=== PATIENT | female | born 1975 | race Caucasian/White ===

== ENCOUNTER 2018-08-03 18:16 | Emergency (ER) | payer OTHER ==
--- NOTE | 2018-08-03 18:35 | ERPHSYRPT ---
- History of Present Illness Time Seen by Provider: 08/03/18 18:34 Historian: patient Exam Limitations: no limitations Physician History: 43 y/o morbidly obese white female presents with abd pain and vaginal bleeding intermittently for 2 weeks. she had a normal pap smear 2 months ago. pt seen 2 weeks ago by her WHEEL BLOCKER, and vaginal exam performed at that time. pt was started on provera. this did not help. today bleeding became more brisk. since arrival bleeding has slowed down significantly. pt has had similar episode in the past requiring blood transfusions. pt denies soa, headache, weakness and denies dizziness. pt denies liver dz, not taking anticoag tx, not taking asa or ibuprofen. pt does not consume etoh. she denies bleeding or clotting d/o. Timing/Duration: week(s) (2), intermittent Activities at Onset: none Quality: cramping (mild suprapubic) Abdominal Pain Onset Location: suprapubic Pain Radiation: no radiation Severity of Pain-Max: mild Severity of Pain-Current: mild Modifying Factors: Improves With: lying down (improves) Associated Symptoms: No fatigue, No nausea, No shortness of breath, No vomiting , No weakness Allergies/Adverse Reactions: aspirin Allergy (Mild, Verified 08/03/18 18:45) ibuprofen Allergy (Verified 08/03/18 18:45) ketorolac tromethamine [From Toradol] Allergy (Verified 08/03/18 18:45) Difficulty Breathing naproxen Allergy (Verified 08/03/18 18:45) Home Medications: Allopurinol 300 mg PO DAILY 12/01/15 [History] Oxycodone HCl 30 mg PO TID PRN 12/01/15 [History] Propranolol HCl [Propranolol HCl ER] 60 mg PO DAILY 12/01/15 [History] Glipizide [Glucotrol Xl] 10 mg DAILY 02/27/18 [History] Hydroxyzine HCl 25 mg [Atarax 25 mg] 25 mg PO TID 02/27/18 [History] Insulin Glargine,Hum.rec.anlog [Basaglar Kwikpen U-100] 20 unit SQ DAILY [History] Venlafaxine HCl [Venlafaxine HCl ER] 150 mg PO DAILY 04/05/18 [History] Hx Tetanus, Diphtheria Vaccination/Date Given: No Hx Influenza Vaccination/Date Given: No Hx Pneumococcal Vaccination/Date Given: No - Review of Systems Constitutional: No Symptoms, No Fatigue, No Lethargy, No Weakness Eyes: No Symptoms Ears, Nose, & Throat: No Symptoms, No Nose Congestion, No Mouth Pain Respiratory: No Symptoms, No Cough, No Dyspnea, No Stridor, No Wheezing Cardiac: No Symptoms, No Chest Pain, No Palpitations, No Syncope Abdominal/Gastrointestinal: No Symptoms, No Abdominal Pain, No Nausea, No Vomiting, No Diarrhea Genitourinary Symptoms: No Symptoms, No Dysuria, No Frequency, No Hematuria Musculoskeletal: No Symptoms Skin: No Symptoms Neurological: No Symptoms Psychological: No Symptoms Endocrine: No Symptoms Hematologic/Lymphatic: Blood Clots (vaginally earlier today) Immunological/Allergic: No Symptoms All Other Systems: Reviewed and Negative - Past Medical History Pertinent Past Medical History: Yes Neurological History: No Pertinent History ENT History: No Pertinent History Cardiac History: No Pertinent History Respiratory History: Bronchitis Endocrine Medical History: Diabetes Type II Musculoskeletal History: Degenerative Disk Disease GI Medical History: No Pertinent History, Ulcer History: No Pertinent History Psycho-Social History: Anxiety, Depression Female Reproductive Disorders: Menstrual Problems Other Medical History: Pt states she has Celiac disease and does not tolerate gluten.gout,anemia,high wbc-blood diorder - Past Surgical History Past Surgical History: Yes Neuro Surgical History: No Pertinent History Cardiac: No Pertinent History Respiratory: No Pertinent History Gastrointestinal: Cholecystectomy Genitourinary: No Pertinent History Musculoskeletal: No Pertinent History Female Surgical History: No Pertinent History Other Surgical History: Gall baldder 1998 - Social History Smoking Status: Never smoker Exposure to second hand smoke: Yes (aunt) Drug Use: none Patient Lives Alone: No - Nursing Vital Signs Nursing Vital Signs: Initial Vital Signs Temperature 97.4 F 08/03/18 18:38 Pulse Rate 119 H 08/03/18 18:38 Respiratory Rate 20 08/03/18 18:38 Blood Pressure 168/113 08/03/18 18:38 O2 Sat by Pulse Oximetry 95 08/03/18 18:38 Pain Scale Pain Intensity 0 - Physical Exam General Appearance: no apparent distress, alert, anxiety Eye Exam: PERRL/EOMI Ears, Nose, Throat Exam: normal ENT inspection, moist mucous membranes Neck Exam: normal inspection, non-tender, supple, full range of motion Respiratory Exam: normal breath sounds, lungs clear, airway intact, No chest tenderness, No respiratory distress, No accessory muscle use, No rhonchi, No wheezing, No stridor Cardiovascular Exam: tachycardia Gastrointestinal/Abdomen Exam: soft, normal bowel sounds, tenderness (mild suprapubic) Pelvic Exam: not done, vaginal bleeding (not at time of exam) Rectal Exam: not done Back Exam: normal inspection, normal range of motion, No CVA tenderness, No vertebral tenderness Extremity Exam: normal inspection, normal range of motion, pelvis stable Neurologic Exam: alert, oriented x 3, cooperative, edge bonder II-XII nml as tested Skin Exam: normal color, warm, dry Lymphatic Exam: No adenopathy SpO2 Interpretation: normal - Course Nursing assessment & vital signs reviewed: Yes Ordered Tests: Active Orders 24 hr Category Date Time Status IV Insertion STAT Care 08/03/18 18:58 Active CBC W DIFF Stat Lab 08/03/18 19:38 Completed CMP Stat Lab 08/03/18 19:38 Completed HCG QUALITATIVE,SERUM Stat Lab 08/03/18 19:38 Completed PT INR [PROTIME WITH INR] Stat Lab 08/03/18 19:38 Completed UA W/RFX UR CULTURE Stat Lab 08/03/18 18:59 Uncollected Medication Summary Generic Name Dose Route Start Last Admin Trade Name Freq PRN Reason Stop Dose Admin Sodium Chloride 500 mls @ 500 mls/hr 08/03/18 20:19 Sodium Chloride 0.9% 500 Ml IV 08/03/18 21:18 .Q1H ONE Lab/Rad Data: Laboratory Result Diagrams 08/03/18 19:38 08/03/18 19:38 Laboratory Results 08/03/18 08/03/18 08/03/18 Range/Units 19:38 19:38 19:38 WBC (4.0-10.5) K/mm3 RBC (4.1-5.4) M/mm3 Hgb (12.0-16.0) gm/dl Hct (35-47) % MCV (78-100) fl MCH (26-32) pg MCHC (32-36) g/dl RDW (11.5-14.0) % Plt Count (150-450) K/mm3 MPV (6-9.5) fl Gran % (36.0-66.0) % Eos # (Auto) (0-0.5) Absolute Lymphs (auto) (1.0-4.6) Absolute Monos (auto) (0.0-1.3) Lymphocytes % (24.0-44.0) % Monocytes % (0.0-12.0) % Eosinophils % (0.00-5.0) % Basophils % (0.0-0.4) % Absolute Granulocytes (1.4-6.9) Basophils # (0-0.4) PT 13.9 H (9.95-12.35) SECONDS INR 1.19 (0.8-3.0) Sodium 142 (137-145) mmol/L Potassium 3.7 (3.5-5.1) mmol/L Chloride 101 (98-107) mmol/L Carbon Dioxide 24 (22-30) mmol/L Anion Gap 20.0 H (5-15) MEQ/L BUN 16 (7-17) mg/dL Creatinine 0.85 (0.52-1.04) mg/dL Estimated GFR > 60.0 ML/MIN Glucose 198 H (74-106) mg/dL Calcium 9.3 (8.4-10.2) mg/dL Total Bilirubin 0.40 (0.2-1.3) mg/dL AST 20 (14-36) U/L ALT 21 (0-35) U/L Alkaline Phosphatase 135 H (38-126) U/L Serum Total Protein 8.4 H (6.3-8.2) g/dL Albumin 4.4 (3.5-5.0) g/dL Serum , Qual NEGATIVE (Negative) 08/03/18 Range/Units 19:38 WBC 18.4 H (4.0-10.5) K/mm3 RBC 4.31 (4.1-5.4) M/mm3 Hgb 11.5 L (12.0-16.0) gm/dl Hct 36.0 (35-47) % MCV 83.5 (78-100) fl MCH 26.6 (26-32) pg MCHC 31.9 L (32-36) g/dl RDW 14.9 H (11.5-14.0) % Plt Count 426 (150-450) K/mm3 MPV 9.7 H (6-9.5) fl Gran % 75.3 H (36.0-66.0) % Eos # (Auto) 0.45 (0-0.5) Absolute Lymphs (auto) 3.17 (1.0-4.6) Absolute Monos (auto) 0.86 (0.0-1.3) Lymphocytes % 17.2 L (24.0-44.0) % Monocytes % 4.7 (0.0-12.0) % Eosinophils % 2.4 (0.00-5.0) % Basophils % 0.4 (0.0-0.4) % Absolute Granulocytes 13.83 H (1.4-6.9) Basophils # 0.07 (0-0.4) PT (9.95-12.35) SECONDS INR (0.8-3.0) Sodium (137-145) mmol/L Potassium (3.5-5.1) mmol/L Chloride (98-107) mmol/L Carbon Dioxide (22-30) mmol/L Anion Gap (5-15) MEQ/L BUN (7-17) mg/dL Creatinine (0.52-1.04) mg/dL Estimated GFR ML/MIN Glucose (74-106) mg/dL Calcium (8.4-10.2) mg/dL Total Bilirubin (0.2-1.3) mg/dL AST (14-36) U/L ALT (0-35) U/L Alkaline Phosphatase (38-126) U/L Serum Total Protein (6.3-8.2) g/dL Albumin (3.5-5.0) g/dL Serum , Qual (Negative) - Progress Progress: improved, re-examined Counseled pt/family regarding: lab results, diagnosis, need for follow-up - Departure Time of Disposition: 20:32 Departure Disposition: Home Clinical Impression: Vaginal bleeding Condition: Stable Critical Care Time: No Referrals: LUCERO RIVERS [Primary Care Provider] - Additional Instructions: return to [facility] tomorrow morning for lab recheck. go to Emergency room after blood draw to obtain results. return to Emergency room if bleeding worsens and you have dizziness, weakness or worsening abdominal cramping. bedrest and drink plenty of fluids.
[2018-08-03 19:43] LABS: BASOPHIL % 0.4 % (0.0-0.4); Basophil (Absolute #) 0.07 (0-0.4); Eosinophil % 2.4 % (0.00-5.0); Eosinophil (Absolute #) 0.45 (0-0.5); Granulocyte Absolute (ANC) 13.83 (1.4-6.9); Granulocytes % 75.3 % (36.0-66.0); Hemoglobin 11.5 gm/dl (12.0-16.0); Lymphocyte (Absolute #) 3.17 (1.0-4.6); Lymphocytes % 17.2 % (24.0-44.0); Mean Cell Volume 83.5 fl (78-100); Mean Corpuscular Hgb Concent. 31.9 g/dl (32-36); Mean Platelet Volume 9.7 fl (6-9.5); Monocyte (Absolute #) 0.86 (0.0-1.3); Monocytes % 4.7 % (0.0-12.0); Platelet Count 426 K/mm3 (150-450); Red Blood Count 4.31 M/mm3 (4.1-5.4); Red Cell Distribution Width 14.9 % (11.5-14.0); White Blood Count 18.4 K/mm3 (4.0-10.5)
[2018-08-03 19:44] LABS: Mean Corpuscular Hemoglobin 26.6 pg (26-32)
[2018-08-03 19:58] LABS: INR 1.19 (0.8-3.0)
[2018-08-03] MEDS ORDERED: Sodium Chloride 0.9% 500 ML 500 ML IV ONE (20:19)
[2018-08-03 20:27] LABS: ALBUMIN 4.4 g/dL (3.5-5.0); ALKALINE PHOSPHATASE 135 U/L (38-126); BLOOD UREA NITROGEN 16 mg/dL (7-17); CHLORIDE 101 mmol/L (98-107); Calcium 9.3 mg/dL (8.4-10.2); Carbon Dioxide 24 mmol/L (22-30); Creatinine 1 0.85 mg/dL (0.52-1.04); Glucose 198 mg/dL (74-106); Potassium 3.7 mmol/L (3.5-5.1); SGOT/AST 20 U/L (14-36); SGPT/ALT 21 U/L (0-35); SODIUM 142 mmol/L (137-145); Total Protein 8.4 g/dL (6.3-8.2)
[2018-08-03] MEDS ORDERED: Sodium Chloride 0.9% 1000 ML 1,000 ML ONE (20:28)
[2018-08-03] MEDS ORDERED: Zofran 4 MG/2 ML VIAL ONE (20:32)
[2018-08-03] MEDS ORDERED: Zofran 4 MG/2 ML VIAL IV ONE (20:36)
[2018-08-03 21:23] VITALS: BP 110/52; PULSE 95; O2SAT 95
== END 2018-08-03 21:17 | disposition home or self-care (01) ==
LOC: ED 18:16
DX: N93.9 Abnormal uterine and vaginal bleeding, unspecified (principal); Z79.899 Other long term (current) drug therapy; E11.9 Type 2 diabetes mellitus without complications; Z79.4 Long term (current) use of insulin; R10.9 Unspecified abdominal pain
CPT/HCPCS: 36000; 36415; 80053; 81025; 85025; 85610; 96360; 96374; 99284; J2405

== ENCOUNTER 2019-01-24 19:35 | Emergency (ER) | payer OTHER ==
[2019-01-24] MEDS ORDERED: Zofran 4 MG/2 ML VIAL IV ONE (20:13)
[2019-01-24] MEDS ORDERED: Hydromorphone 1 mg/ml Ampule IV ONE (20:13)
[2019-01-24] MEDS ORDERED: solu-MEDROL 125 MG IV ONE (20:14)
[2019-01-24] MEDS ORDERED: Sodium Chloride 0.9% 1000 ML 1,000 ML IV SCH (20:15)
--- NOTE | 2019-01-24 20:19 | ERPHSYRPT ---
- History of Present Illness Time Seen by Provider: 01/24/19 19:55 Source: patient Exam Limitations: clinical condition Patient Subjective Stated Complaint: pain to lower right back area. Hx of uterine cancer, pt states, Delfina Miller NP, states theres a spot on her lung and her kidney and pt is afraid it has spread. Pt states sob x1 week and back pain 2-3 weeks. Triage Nursing Assessment: lungs clear, abd soft with active bs x4 quad. heart tones regular. Pt is morbidly obese. Does not appear to be in any distress. C /o back pain, no radiating pain. Pt has hx of uterine cancer, with hysterectomy on 10/26/18. Delfina Miller NP, tells pt that she has a spot on her lung and kidney and she's afraid it might of spread. Physician History: PATIENT WITH A HISTORY OF MORBID OBESITY, DEGENERATIVE DISC DISEASE COMPLAINS OF LOWER BACK PAIN FOR WEEKS. DENIES TRAUMA, INJURY, RADIATION OF PAIN INTO LEGS , NUMBNESS, WEAKNESS IN EXTREMITIES, LOSS OF BOWEL OR BLADDER FUNCTION. STATES PAIN IS WORSE UPON RANGE OF MOTION OF BACK. Timing/Duration: week(s) Method of Injury: other (DENIES INJURY) Quality: sharp, throbbing Back Pain Location: lumbar spine Severity of Pain-Max: severe Severity of Pain-Current: severe Modifying Factors: Improves With: movement Associated Symptoms: lower back pain Previous symptoms: same symptoms as today Allergies/Adverse Reactions: aspirin Allergy (Mild, Verified 08/03/18 18:45) ibuprofen Allergy (Verified 08/03/18 18:45) ketorolac tromethamine [From Toradol] Allergy (Verified 08/03/18 18:45) Difficulty Breathing naproxen Allergy (Verified 08/03/18 18:45) Home Medications: Allopurinol 300 mg PO DAILY 12/01/15 [History] Propranolol HCl [Propranolol HCl ER] 60 mg PO DAILY 12/01/15 [History] Hydroxyzine HCl 25 mg [Atarax 25 mg] 25 mg PO TID 02/27/18 [History] Colchicine 0.6 mg PO HS 01/24/19 [History] Insulin Glargine,Hum.rec.anlog [Basaglar Kwikpen U-100] 10 units SQ HS 01/24/19 [History] Insulin Glargine,Hum.rec.anlog [Sabiha Jaime U-100] 50 unit SQ DAILY [History] Lisinopril 20 mg [Zestril 20 MG] 20 mg PO DAILY 01/24/19 [History] Omeprazole 20 mg PO HS 01/24/19 [History] Oxybutynin Chloride 5 mg PO HS 01/24/19 [History] Sertraline HCl 50 mg [Zoloft 50 mg Tablet] 50 mg PO HS 01/24/19 [History] Hx Tetanus, Diphtheria Vaccination/Date Given: Yes Hx Influenza Vaccination/Date Given: Yes Hx Pneumococcal Vaccination/Date Given: No Immunizations Up to Date: Yes - Review of Systems Constitutional: No Fever, No Chills Eyes: No Symptoms Ears, Nose, & Throat: No Symptoms Respiratory: No Cough, No Dyspnea Cardiac: No Symptoms, No Chest Pain, No Edema, No Syncope Abdominal/Gastrointestinal: No Abdominal Pain, No Nausea, No Vomiting, No Diarrhea Genitourinary Symptoms: No Symptoms, No Dysuria Musculoskeletal: Joint Pain, No Back Pain, No Neck Pain Skin: No Rash Neurological: No Dizziness, No Focal Weakness, No Sensory Changes Psychological: No Symptoms Endocrine: No Symptoms All Other Systems: Reviewed and Negative - Past Medical History Pertinent Past Medical History: Yes Neurological History: Migraines ENT History: Macular Degeneration Cardiac History: High Cholesterol, Hypertension Respiratory History: No Pertinent History Endocrine Medical History: Diabetes Type II Musculoskeletal History: No Pertinent History GI Medical History: GERD, Gallbladder Disease History: No Pertinent History Psycho-Social History: Anxiety, Bipolar, Depression Female Reproductive Disorders: Abnormal Uterine Bleeding, Uterine Cancer Other Medical History: gout - Past Surgical History Past Surgical History: Yes Neuro Surgical History: No Pertinent History Cardiac: No Pertinent History Respiratory: No Pertinent History Gastrointestinal: Cholecystectomy Genitourinary: No Pertinent History Musculoskeletal: No Pertinent History Female Surgical History: Hysterectomy Other Surgical History: Gall baldder 1998 - Social History Smoking Status: Never smoker Exposure to second hand smoke: Yes Drug Use: none Patient Lives Alone: No - Female History Hx Last Menstrual Period: october, Hx Now: No - Nursing Vital Signs Nursing Vital Signs: Initial Vital Signs Temperature 98.9 F 01/24/19 19:35 Pulse Rate 106 H 01/24/19 19:35 Respiratory Rate 18 01/24/19 19:35 Blood Pressure 170/105 01/24/19 19:35 O2 Sat by Pulse Oximetry 95 01/24/19 19:35 Pain Scale Pain Intensity [Right Back] 10 Pain Intensity 10 - Physical Exam General Appearance: no apparent distress, alert Eye Exam: PERRL/EOMI, eyes nml inspection Neck Exam: normal inspection, non-tender, supple, full range of motion, No meningismus, No midline tenderness Respiratory Exam: normal breath sounds, lungs clear, No respiratory distress Cardiovascular Exam: regular rate/rhythm, normal heart sounds Gastrointestinal Exam: soft, No tenderness, No mass Back Exam: normal inspection, vertebral tenderness, decreased range of motion, muscle spasm (MARKED TENDERNESS LI-L5 WITH PARASPINAL TENDERNESS, NO CVA OR SACROILIAC TENDERNESS) Extremity Exam: normal inspection, normal range of motion, No calf tenderness, No pedal edema Neurologic Exam: alert, oriented x 3, cooperative, visual journalist II-XII nml as tested, normal mood/affect, nml station & gait, sensation nml, No motor deficits Skin Exam: normal color, warm, dry, No rash SpO2: 95 - Radiology Exams L-Spine X-ray Interpretation: Interpreted by me (MILD DEGENERATIVE ARTHRITIS, NO FRACTURE OR SUBLUXATION) Ordered Tests: Active Orders 24 hr Category Date Time Status LUMBAR COMPLETE (MIN 4 VIEWS) Stat Exams 01/24/19 20:12 Taken UA W/RFX UR CULTURE Stat Lab 01/24/19 20:19 Ordered Medication Summary Generic Name Dose Route Start Last Admin Trade Name Freq PRN Reason Stop Dose Admin Sodium Chloride 1,000 mls @ 50 mls/hr 01/24/19 20:15 01/24/19 20:27 Sodium Chloride 0.9% 1000 Ml IV 02/23/19 20:14 50 mls/hr .Q20H GODWIN Administration Discontinued Medications Generic Name Dose Route Start Last Admin Trade Name Freq PRN Reason Stop Dose Admin Hydromorphone HCl 1 mg 01/24/19 20:13 01/24/19 20:27 Hydromorphone 1 Mg/Ml Ampule IV 01/24/19 20:14 1 mg STAT ONE Administration Hydromorphone HCl Confirm 01/24/19 20:22 Hydromorphone 1 Mg/Ml Ampule Administered 01/24/19 20:23 Dose 1 mg .ROUTE .STK-MED ONE Methylprednisolone Sodium Succinate 125 mg 01/24/19 20:14 01/24/19 20:28 Solu-Medrol 125 Mg IV 01/24/19 20:15 125 mg STAT ONE Administration Methylprednisolone Sodium Succinate Confirm 01/24/19 20:22 Solu-Medrol 125 Mg Administered 01/24/19 20:23 Dose 125 mg .ROUTE .STK-MED ONE Ondansetron HCl 4 mg 01/24/19 20:13 01/24/19 20:28 Zofran 4 Mg/2 Ml Vial IV 01/24/19 20:14 4 mg STAT ONE Administration Ondansetron HCl Confirm 01/24/19 20:22 Zofran 4 Mg/2 Ml Vial Administered 01/24/19 20:23 Dose 4 mg .ROUTE .STK-MED ONE - Progress Progress: improved Progress Note: 01/24/19 20:57 IV NORMAL SALINE 50ML/HR, ZOFRAN 4MG, DILAUDID 1MG, SOLUMEDROL 125MG IV Counseled pt/family regarding: lab results, diagnosis - Departure Departure Disposition: Home Clinical Impression: ACUTE EXACERBATION CHRONIC LOW BACK PAIN Condition: Stable Critical Care Time: No Referrals: LUCERO RIVERS [Primary Care Provider] - Additional Instructions: CONSULT YOUR PRIMARY CARE PROVIDER IN 3 DAYS FOR EVALUATION, TREATMENT, PHYSICAL THERAPY REFERRAL. PERCOGESIC 1 TABLET EVERY 4 HOURS FOR PAIN NEEDED , AND NORFLEX 100MG TWICE DAILY FOR 5 DAYS FOR TREATMENT OF MUSCLE SPASMS. PREDNISONE 20MG, 2 TABLETS DAILY FOR 4 DAYS. Prescriptions: Acetaminophen/Diphenhydramine [Percogesic 325-12.5 mg Tablet] 1 each PO Q4H PRN PRN #20 tablet PRN Reason: Pain Orphenadrine Citrate 100 mg [Norflex 100 MG Tablet] 100 mg PO BID #10 tab Prednisone 20 mg [Deltasone 20 mg] 2 tab PO DAILY #8 tablet
[2019-01-24] MEDS ORDERED: Zofran 4 MG/2 ML VIAL ONE (20:22)
[2019-01-24] MEDS ORDERED: Hydromorphone 1 mg/ml Ampule ONE (20:22)
[2019-01-24] MEDS ORDERED: solu-MEDROL 125 MG ONE (20:22)
[2019-01-24] MEDS ORDERED: Sodium Chloride 0.9% 1000 ML 1,000 ML ONE (20:22)
[2019-01-24 21:13] VITALS: BP 123/67; PULSE 94; O2SAT 94
--- NOTE | 2019-01-25 08:41 | XRAY ---
Indication: Low back pain 2 weeks. Comparison: February 13, 2017. 5 views of the lumbar spine again demonstrates normal alignment with stable mild multilevel thoracolumbar degenerative spondylosis and cholecystectomy clips. No acute fracture, subluxation, or pars interarticularis defect. Remaining visualized soft tissues unremarkable. Impression: Stable degenerative changes. No new/acute findings.
== END 2019-01-24 21:21 | disposition home or self-care (01) ==
LOC: ED 19:35
DX: M54.5 Low back pain (principal); G89.29 Other chronic pain; M19.90 Unspecified osteoarthritis, unspecified site; E11.9 Type 2 diabetes mellitus without complications; F41.9 Anxiety disorder, unspecified; F31.9 Bipolar disorder, unspecified; Z79.899 Other long term (current) drug therapy
CPT/HCPCS: 72110; 96360; 96374; 96375; 99284; J1170; J2405; J2930

== ENCOUNTER 2019-02-01 18:39 | Emergency (ER) | payer OTHER ==
--- NOTE | 2019-02-01 19:47 | ERPHSYRPT ---
- History of Present Illness Time Seen by Provider: 02/01/19 19:10 Source: patient, family Patient Subjective Stated Complaint: Pt states she was here in the er last monday. Was not able to make it to a follow up appt with her doctor. Stated the pain never went away but has gotten worse since yesterday. No difficulty with urinating or bm Triage Nursing Assessment: Pt alert & oriented. Ambulated to room. Respirations easy and non-labored. Abdomen non-tender to palpation but left and right flank and dry cans back tender to palpation. Physician History: 43 y/o diabetic,morbidly obese white female returns with same complaint of back pain bilateral lower. no injury. pt was unable to see an outpt primary doctor since her last visit as instructed. she has no urinary sx. Timing/Duration: week(s) (1 to 2 ) Method of Injury: other (no injury) Quality: aching Back Pain Location: lumbar spine Severity of Pain-Max: moderate Severity of Pain-Current: moderate Modifying Factors: Improves With: movement Associated Symptoms: lower back pain, muscle spasms, No urinary incontinence, No nausea, No vomiting, No problems urinating, No numbness in legs/feet, No weakness, No tingling in legs/feet Previous symptoms: same symptoms as today Allergies/Adverse Reactions: aspirin Allergy (Mild, Verified 08/03/18 18:45) ibuprofen Allergy (Verified 08/03/18 18:45) ketorolac tromethamine [From Toradol] Allergy (Verified 08/03/18 18:45) Difficulty Breathing naproxen Allergy (Verified 08/03/18 18:45) Home Medications: Allopurinol 300 mg PO DAILY 12/01/15 [History] Propranolol HCl [Propranolol HCl ER] 60 mg PO DAILY 12/01/15 [History] Hydroxyzine HCl 25 mg [Atarax 25 mg] 25 mg PO TID 02/27/18 [History] Colchicine 0.6 mg PO HS 01/24/19 [History] Insulin Glargine,Hum.rec.anlog [Basaglar Kwikpen U-100] 10 units SQ HS 01/24/19 [History] Insulin Glargine,Hum.rec.anlog [Basaglar Kwikpen U-100] 50 unit SQ DAILY [History] Lisinopril 20 mg [Zestril 20 MG] 20 mg PO DAILY 01/24/19 [History] Omeprazole 20 mg PO HS 01/24/19 [History] Oxybutynin Chloride 5 mg PO HS 01/24/19 [History] Sertraline HCl 50 mg [Zoloft 50 mg Tablet] 50 mg PO HS 01/24/19 [History] Hx Tetanus, Diphtheria Vaccination/Date Given: Yes Hx Influenza Vaccination/Date Given: Yes Hx Pneumococcal Vaccination/Date Given: No - Review of Systems Constitutional: No Symptoms Eyes: No Symptoms Ears, Nose, & Throat: No Symptoms Respiratory: No Symptoms Cardiac: No Symptoms Abdominal/Gastrointestinal: No Symptoms Genitourinary Symptoms: No Symptoms Musculoskeletal: Back Pain Skin: No Symptoms Neurological: No Symptoms Psychological: No Symptoms Endocrine: No Symptoms Hematologic/Lymphatic: No Symptoms Immunological/Allergic: No Symptoms All Other Systems: Reviewed and Negative - Past Medical History Pertinent Past Medical History: Yes Neurological History: Migraines ENT History: Macular Degeneration Cardiac History: High Cholesterol, Hypertension Respiratory History: No Pertinent History Endocrine Medical History: Diabetes Type II Musculoskeletal History: No Pertinent History GI Medical History: GERD, Gallbladder Disease History: No Pertinent History Psycho-Social History: Anxiety, Bipolar, Depression Female Reproductive Disorders: Abnormal Uterine Bleeding, Uterine Cancer Other Medical History: gout, celiac disease, anemia - Past Surgical History Past Surgical History: Yes Neuro Surgical History: No Pertinent History Cardiac: No Pertinent History Respiratory: No Pertinent History Gastrointestinal: Cholecystectomy Genitourinary: No Pertinent History Musculoskeletal: No Pertinent History Female Surgical History: Hysterectomy Other Surgical History: Gall baldder 1998 - Social History Smoking Status: Never smoker Exposure to second hand smoke: Yes Drug Use: none Patient Lives Alone: No - Female History Hx Now: No - Nursing Vital Signs Nursing Vital Signs: Initial Vital Signs Temperature 97.7 F 02/01/19 18:56 Pulse Rate 117 H 02/01/19 18:56 Respiratory Rate 18 02/01/19 18:56 Blood Pressure 133/82 02/01/19 18:56 O2 Sat by Pulse Oximetry 96 02/01/19 18:56 Pain Scale Pain Intensity 10 - Physical Exam General Appearance: mild distress, alert, anxiety Eye Exam: PERRL/EOMI Ears, Nose, Throat Exam: normal ENT inspection, moist mucous membranes Neck Exam: normal inspection, non-tender, supple, full range of motion Respiratory Exam: No chest tenderness, No respiratory distress Gastrointestinal Exam: No tenderness Pelvic Exam: not done Rectal Exam: not done Back Exam: normal inspection, decreased range of motion, muscle spasm Extremity Exam: normal inspection, normal range of motion, pelvis stable Neurologic Exam: alert, oriented x 3, cooperative, tilt wall supervisor II-XII nml as tested Skin Exam: normal color, warm, dry Lymphatic Exam: No adenopathy SpO2 Interpretation: normal SpO2: 96 O2 Delivery: Room Air - Course Nursing assessment & vital signs reviewed: Yes - Progress Progress: unchanged Counseled pt/family regarding: diagnosis, need for follow-up - Departure Departure Disposition: Home Clinical Impression: Chronic back pain Condition: Stable Critical Care Time: No Referrals: LUCERO RIVERS [Primary Care Provider] - Additional Instructions: you must follow up with an outpatient provider for further management. Prescriptions: Carisoprodol 350 mg [Soma 350 mg] 350 mg PO Q8H PRN PRN #10 tablet PRN Reason: Muscle Spasms Hydrocodone/APAP 5/325 [[place] 5/325 mg] 1 each PO Q12H PRN PRN #5 tablet MDD 2 PRN Reason: Pain Prednisone 10 mg [Deltasone 10 mg] 10 mg PO TID #12 tablet
[2019-02-01] MEDS ORDERED: NORCO 5/325 MG PO ONE (19:54)
[2019-02-01] MEDS ORDERED: Cyclobenzaprine 10 MG PO ONE (19:55)
[2019-02-01] MEDS ORDERED: Cyclobenzaprine 10 MG ONE (19:58)
[2019-02-01] MEDS ORDERED: NORCO 5/325 MG ONE (19:59)
[2019-02-01 20:05] VITALS: BP 110/71
[2019-02-01 20:15] VITALS: PULSE 104; O2SAT 98
== END 2019-02-01 20:14 | disposition home or self-care (01) ==
LOC: ED 18:39
DX: M54.5 Low back pain (principal); G89.29 Other chronic pain; M62.830 Muscle spasm of back; Z79.899 Other long term (current) drug therapy
CPT/HCPCS: 99283; A9270-GY

== ENCOUNTER 2019-02-06 09:40 | Emergency (ER) | payer OTHER ==
--- NOTE | 2019-02-06 10:47 | XRAY ---
Indication: Right leg pain. Two-dimensional sonogram and color Doppler imaging of the major venous vessels of the right leg was performed. Comparison: None No thrombus seen in the examined deep venous vessels of the right leg including greater saphenous vein. Veins demonstrate normal compressibility. Venous waveforms are normal with and without augmentation. Impression: Right leg negative for DVT.
--- NOTE | 2019-02-06 11:27 | XRAY ---
Indication: Pain. No known injury. Comparison: None 3 views of the right ankle demonstrates tiny posterior heel spur. No other bony, articular, or soft tissue abnormalities.
--- NOTE | 2019-02-06 11:50 | ERPHSYRPT ---
- History of Present Illness Source: patient Exam Limitations: no limitations Patient Subjective Stated Complaint: pt states "my right foot hurts really bad. " Triage Nursing Assessment: Pt alert and oriented X 3, skin pwd. PT ambulates with a limp. Pt in no apparent respiratory distress. no injury, no swelling, no redness noted. Physician History: Pt is a 43 y/o female that presented to the ER with complains of R foot and leg pain. Pt states, she woke up this morning, and was not able to put her foot on the floor secondary to pain, she states, had spasms in her R calf as well. Pt' s daughter helped her to get to the ER and ambulate. Pt denies F/C/S. No SOB or cough. No chest discomfort. No N/V/D or abdominal pain. Occurred: this morning Quality: constant Severity of Pain-Max: mild Severity of Pain-Current: mild Lower Extremities Pain: leg: right (Pain in the calf), foot: right (pain in the foot and ankle.), ankle: right (pain in the foot and ankle.) Modifying Factors: Improves With: nothing Associated Symptoms: unable to bear weight Allergies/Adverse Reactions: aspirin Allergy (Mild, Verified 08/03/18 18:45) ibuprofen Allergy (Verified 08/03/18 18:45) ketorolac tromethamine [From Toradol] Allergy (Verified 08/03/18 18:45) Difficulty Breathing naproxen Allergy (Verified 08/03/18 18:45) Home Medications: Allopurinol 300 mg PO DAILY 12/01/15 [History] Propranolol HCl [Propranolol HCl ER] 60 mg PO DAILY 12/01/15 [History] Hydroxyzine HCl 25 mg [Atarax 25 mg] 25 mg PO TID 02/27/18 [History] Colchicine 0.6 mg PO HS 01/24/19 [History] Insulin Glargine,Hum.rec.anlog [Basaglar Kwikpen U-100] 10 units SQ HS 01/24/19 [History] Insulin Glargine,Hum.rec.anlog [Basaglar Kwikpen U-100] 50 unit SQ DAILY [History] Lisinopril 20 mg [Zestril 20 MG] 20 mg PO DAILY 01/24/19 [History] Omeprazole 20 mg PO HS 01/24/19 [History] Oxybutynin Chloride 5 mg PO HS 01/24/19 [History] Sertraline HCl 50 mg [Zoloft 50 mg Tablet] 50 mg PO HS 01/24/19 [History] Hx Tetanus, Diphtheria Vaccination/Date Given: No Hx Influenza Vaccination/Date Given: Yes Hx Pneumococcal Vaccination/Date Given: No Immunizations Up to Date: Yes - Review of Systems Constitutional: No Fever, No Chills Respiratory: No Cough, No Dyspnea Cardiac: No Chest Pain, No Edema, No Syncope Abdominal/Gastrointestinal: No Abdominal Pain, No Nausea, No Vomiting, No Diarrhea Genitourinary Symptoms: No Dysuria Musculoskeletal: Other (Pain i8n the R calf, ankle and foot) Skin: No Rash Neurological: No Dizziness, No Focal Weakness, No Sensory Changes - Past Medical History Pertinent Past Medical History: Yes Neurological History: Migraines ENT History: Macular Degeneration Cardiac History: High Cholesterol, Hypertension Respiratory History: No Pertinent History Endocrine Medical History: Diabetes Type II Musculoskeletal History: No Pertinent History GI Medical History: GERD, Gallbladder Disease History: No Pertinent History Psycho-Social History: Anxiety, Bipolar, Depression Female Reproductive Disorders: Abnormal Uterine Bleeding, Uterine Cancer Other Medical History: gout, celiac disease, anemia - Past Surgical History Past Surgical History: Yes Neuro Surgical History: No Pertinent History Cardiac: No Pertinent History Respiratory: No Pertinent History Gastrointestinal: Cholecystectomy Genitourinary: No Pertinent History Musculoskeletal: No Pertinent History Female Surgical History: Hysterectomy Other Surgical History: Gall baldder 1998 - Social History Smoking Status: Never smoker Exposure to second hand smoke: Yes Drug Use: none Patient Lives Alone: No - Female History Hx Last Menstrual Period: hysterectomy Hx Now: No - Nursing Vital Signs Nursing Vital Signs: Initial Vital Signs Temperature 97.5 F 02/06/19 09:45 Pulse Rate 75 02/06/19 09:45 Respiratory Rate 16 02/06/19 09:45 Blood Pressure 161/81 02/06/19 09:45 O2 Sat by Pulse Oximetry 97 02/06/19 09:45 Pain Scale Pain Intensity 10 - Physical Exam General Appearance: alert Eyes, Ears, Nose, Throat Exam: moist mucous membranes Neck Exam: non-tender, supple Cardiovascular/Respiratory Exam: chest non-tender, normal breath sounds, regular rate/rhythm, no respiratory distress Gastrointestinal/Abdominal Exam: non-tender, guarding Legs Exam: right leg: pain (gastrocs pain) Ankle Exam: right ankle: pain Foot Exam: right foot: pain Neuro/Tendon Exam: normal sensation, normal motor functions Mental Status Exam: alert, oriented x 3, cooperative SpO2: 97 - Course Nursing assessment & vital signs reviewed: Yes - Radiology Exams Right Ankle X-ray Interpretation: Reviewed by me (Tiny posterior heel spur.) - Radiology Ultrasound Exam Venous Lower Extremity Ultrasound: tele radiology report (Negative for DVT) Ordered Tests: Active Orders 24 hr Category Date Time Status ANKLE (3 VIEWS) Stat Exams 02/06/19 11:02 Completed VENOUS UNILAT/LIMITED EXTREMIT [US] Stat Exams 02/06/19 10:33 Completed - Progress Progress: unchanged Progress Note: 02/06/19 11:53 Pt had doppler to r/o DVT, and as that was negative XR was ordered, that showed small heel spur. Pt was advised to f/u with PCP. Discussed with : Darryl Will see patient in: office Counseled pt/family regarding: need for follow-up - Departure Departure Disposition: Home Clinical Impression: Right leg pain Condition: Stable Critical Care Time: No Referrals: LUCERO RIVERS [Primary Care Provider] - Additional Instructions: F/U with PCP
[2019-02-06 11:53] VITALS: BP 160/80; PULSE 74
[2019-02-06 11:54] VITALS: O2SAT 97
== END 2019-02-06 12:04 | disposition home or self-care (01) ==
LOC: ED 09:40
DX: M79.604 Pain in right leg (principal)
CPT/HCPCS: 73610; 93971; 99284

== ENCOUNTER 2020-05-07 19:36 | Emergency (ER) | payer OTHER ==
--- NOTE | 2020-05-07 19:46 | ERPHSYRPT ---
- History of Present Illness Time Seen by Provider: 05/07/20 19:46 Historian: patient Exam Limitations: no limitations Physician History: This is a 45-year-old morbidly obese female who has a history of elevated cholesterol, diabetes, hypertension, gout, and bipolar issues. She has had intermittent chest pain for 2 weeks. Prior to arrival today, her chest pain was steadily present for approximately 1 hour. She describes the pain as constant left side chest pressure that radiates into her left shoulder and left back. Patient states that she has a history of a left lower lung tumor. Patient is allergic to aspirin. 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 Her primary care doctor is Dr. Andrews. Timing/Duration: week(s) (2) Activities at Onset: none Quality: pressure Location: other (Left chest) Chest Pain Radiation: arm (Left shoulder), back Severity of Pain-Max: mild Severity of Pain-Current: mild Modifying Factors: Improves With: nothing Associated Symptoms: denies symptoms Prior Chest Pain/Cardiac Workup: no prior chest pain Nitro Today/Relief: no nitro taken today Aspirin Treatment Today: no aspirin today Allergies/Adverse Reactions: aspirin Allergy (Mild, Verified 05/07/20 19:47) ibuprofen Allergy (Verified 05/07/20 19:47) ketorolac tromethamine [From Toradol] Allergy (Verified 05/07/20 19:47) Difficulty Breathing naproxen Allergy (Verified 05/07/20 19:47) Home Medications: Propranolol HCl [Propranolol HCl ER] 60 mg PO DAILY 12/01/15 [History] allopurinoL [Allopurinol] 300 mg PO DAILY 12/01/15 [History] Hydroxyzine HCl 25 mg [Atarax 25 mg] 25 mg PO TID 02/27/18 [History] Colchicine 0.6 mg PO HS 01/24/19 [History] Insulin Glargine,Hum.rec.anlog [Basaglar Petrapen U-100] 50 unit SQ DAILY 01/24/19 [History] Lisinopril 20 mg [Zestril 20 MG] 20 mg PO DAILY 01/24/19 [History] Sertraline HCl 50 mg [Zoloft 50 mg Tablet] 50 mg PO BID 04/25/19 [History] Insulin Glargine,Hum.rec.anlog [Sabiha Jaime U-100] 65 unit SQ BID 09/05/19 [History] Aripiprazole [Abilify] 10 mg PO DAILY 05/07/20 [History] Hx Tetanus, Diphtheria Vaccination/Date Given: No Hx Influenza Vaccination/Date Given: Yes Hx Pneumococcal Vaccination/Date Given: No Travel Risk - International Travel Have you traveled outside of the country in past 3 weeks: No - Coronavirus Screening Are you exhibiting any of the following symptoms?: No Close contact with a COVID-19 positive Pt in past 14-21 Days: No - Review of Systems Constitutional: No Symptoms Eyes: No Symptoms Ears, Nose, & Throat: No Symptoms Respiratory: No Symptoms Cardiac: Chest Pain (Left side) Abdominal/Gastrointestinal: No Symptoms Genitourinary Symptoms: No Symptoms Musculoskeletal: No Symptoms Skin: No Symptoms Neurological: No Symptoms Psychological: No Symptoms Endocrine: No Symptoms Hematologic/Lymphatic: No Symptoms Immunological/Allergic: No Symptoms All Other Systems: Reviewed and Negative - Past Medical History Pertinent Past Medical History: Yes Neurological History: Migraines ENT History: Macular Degeneration Cardiac History: High Cholesterol, Hypertension Respiratory History: No Pertinent History Endocrine Medical History: Diabetes Type II Musculoskeletal History: No Pertinent History GI Medical History: GERD, Gallbladder Disease History: No Pertinent History Psycho-Social History: Anxiety, Bipolar, Depression Female Reproductive Disorders: Abnormal Uterine Bleeding, Uterine Cancer Other Medical History: gout, celiac disease, anemia - Past Surgical History Past Surgical History: Yes Neuro Surgical History: No Pertinent History Cardiac: No Pertinent History Respiratory: No Pertinent History Gastrointestinal: Cholecystectomy Genitourinary: No Pertinent History Musculoskeletal: No Pertinent History Female Surgical History: Hysterectomy Other Surgical History: Gall baldder 1998 - Social History Smoking Status: Never smoker Exposure to second hand smoke: Yes Drug Use: none Patient Lives Alone: No - Nursing Vital Signs Nursing Vital Signs: Initial Vital Signs Temperature 98.3 F 05/07/20 19:37 Pulse Rate 86 05/07/20 19:37 Respiratory Rate 18 05/07/20 19:37 Blood Pressure 146/91 05/07/20 19:37 O2 Sat by Pulse Oximetry 97 05/07/20 19:37 Pain Scale Pain Intensity 6 - Physical Exam General Appearance: mild distress, alert, anxiety, obese Eye Exam: PERRL/EOMI, eyes nml inspection Ears, Nose, Throat Exam: normal ENT inspection, moist mucous membranes Neck Exam: normal inspection, non-tender, supple, full range of motion Respiratory Exam: normal breath sounds, chest tenderness, airway intact, No lungs clear, No respiratory distress, No accessory muscle use, No rhonchi, No wheezing Cardiovascular Exam: regular rate/rhythm, normal heart sounds, normal peripheral pulses Gastrointestinal/Abdomen Exam: soft, normal bowel sounds, No tenderness Pelvic Exam: not done Rectal Exam: not done Back Exam: normal inspection, normal range of motion, No CVA tenderness, No vertebral tenderness Extremity Exam: normal inspection, normal range of motion, pelvis stable Neurologic Exam: alert, oriented x 3, cooperative, fiscal accounting clerk II-XII nml as tested, nml cerebellar function, nml station & gait, sensation nml Skin Exam: normal color, warm, dry Lymphatic Exam: No adenopathy SpO2 Interpretation: normal SpO2: 97 O2 Delivery: Room Air - Course Nursing assessment & vital signs reviewed: Yes EKG Interpreted by Me: RATE, Sinus Rhythm, NORMAL AXIS, NORMAL INTERVALS, prolonged QT interval (Borderline), NORMAL QRS, Other (No acute ischemic changes. Comparison EKG is 05/05/2020.) Ordered Tests: Active Orders 24 hr Category Date Time Status Ships Or Barges Loader STAT Care 05/07/20 19:56 Active EKG-ER Only STAT Care 05/07/20 19:55 Active IV Insertion STAT Care 05/07/20 19:55 Active Pulse Oximetry (ED) STAT Care 05/07/20 19:55 Active CHEST 1 VIEW (PORTABLE) Stat Exams 05/07/20 19:56 Taken CHEST WITH CONTRAST [CT] Stat Exams 05/07/20 21:07 Taken CBC W DIFF Stat Lab 05/07/20 Completed CMP Stat Lab 05/07/20 Completed D-DIMER QUANTITATIVE Stat Lab 05/07/20 Completed NT PRO BNP Stat Lab 05/07/20 Completed PROTIME WITH INR Stat Lab 05/07/20 Completed TROPONIN Q3H Lab 05/07/20 Completed TROPONIN Q3H Lab 05/07/20 23:00 Ordered TROPONIN Q3H Lab 05/08/20 02:00 Ordered TROPONIN Q3H Lab 05/08/20 05:00 Ordered TROPONIN Q3H Lab 05/08/20 08:00 Ordered Medication Summary Generic Name Dose Route Start Last Admin Trade Name Freq PRN Reason Stop Dose Admin Sodium Chloride 1,000 mls @ 100 mls/hr 05/07/20 21:15 05/07/20 21:33 Sodium Chloride 0.9% 1000 Ml IV 06/06/20 21:14 100 mls/hr .Q10H GODWIN Administration Discontinued Medications Generic Name Dose Route Start Last Admin Trade Name Jeb PRN Reason Stop Dose Admin Morphine Sulfate 4 mg 05/07/20 19:55 05/07/20 20:03 Morphine Sulfate 4 Mg Inj IV 05/07/20 19:56 4 mg STAT ONE Administration Morphine Sulfate Confirm 05/07/20 20:02 Morphine Sulfate 4 Mg Inj Administered 05/07/20 20:03 Dose 4 mg .ROUTE .STK-MED ONE Morphine Sulfate 4 mg 05/07/20 21:24 05/07/20 21:33 Morphine Sulfate 4 Mg Inj IV 05/07/20 21:25 4 mg STAT ONE Administration Morphine Sulfate Confirm 05/07/20 21:32 Morphine Sulfate 4 Mg Inj Administered 05/07/20 21:33 Dose 4 mg .ROUTE .STK-MED ONE Ondansetron HCl 4 mg 05/07/20 19:55 05/07/20 20:03 Zofran 4 Mg/2 Ml Vial IV 05/07/20 19:56 4 mg STAT ONE Administration Ondansetron HCl Confirm 05/07/20 20:01 Zofran 4 Mg/2 Ml Vial Administered 05/07/20 20:02 Dose 4 mg .ROUTE .STK-MED ONE Lab/Rad Data: Laboratory Result Diagrams 05/07/20 Unknown 05/07/20 Unknown Laboratory Results 05/07/20 05/07/20 05/07/20 Range/Units Unknown Unknown Unknown WBC (4.0-10.5) K/mm3 RBC (4.1-5.4) M/mm3 Hgb (12.0-16.0) gm/dl Hct (35-47) % MCV (78-100) fl MCH (26-32) pg MCHC (32-36) g/dl RDW (11.5-14.0) % Plt Count (150-450) K/mm3 MPV (7.5-11.0) fl Gran % (36.0-66.0) % Eos # (Auto) (0-0.5) Absolute Lymphs (auto) (1.0-4.6) Absolute Monos (auto) (0.0-1.3) Lymphocytes % (24.0-44.0) % Monocytes % (0.0-12.0) % Eosinophils % (0.00-5.0) % Basophils % (0.0-0.4) % Absolute Granulocytes (1.4-6.9) Basophils # (0-0.4) PT 12.3 (9.95-12.35) SECONDS INR 1.09 (0.8-3.0) D-Dimer 707 H* (215-500) ng/mL Sodium 138 (137-145) mmol/L Potassium 3.6 (3.5-5.1) mmol/L Chloride 104 (98-107) mmol/L Carbon Dioxide 24 (22-30) mmol/L Anion Gap 13.9 (5-15) MEQ/L BUN 11 (7-17) mg/dL Creatinine 0.62 (0.52-1.04) mg/dL Estimated GFR > 60.0 ML/MIN Glucose 150 H (74-106) mg/dL Calcium 8.8 (8.4-10.2) mg/dL Total Bilirubin 0.60 (0.2-1.3) mg/dL AST 30 (14-36) U/L ALT 20 (0-35) U/L Alkaline Phosphatase 119 (38-126) U/L Troponin I < 0.012 (0.000-0.034) ng/mL NT-Pro-B Natriuret Pep 538 H (0-450) pg/mL Serum Total Protein 7.5 (6.3-8.2) g/dL Albumin 4.0 (3.5-5.0) g/dL 05/07/20 Range/Units Unknown WBC 10.6 H (4.0-10.5) K/mm3 RBC 3.73 L (4.1-5.4) M/mm3 Hgb 10.3 L (12.0-16.0) gm/dl Hct 33.4 L (35-47) % MCV 89.5 (78-100) fl MCH 27.6 (26-32) pg MCHC 30.8 L (32-36) g/dl RDW 13.7 (11.5-14.0) % Plt Count 338 (150-450) K/mm3 MPV 9.7 (7.5-11.0) fl Gran % 55.4 (36.0-66.0) % Eos # (Auto) 0.37 (0-0.5) Absolute Lymphs (auto) 3.76 (1.0-4.6) Absolute Monos (auto) 0.55 (0.0-1.3) Lymphocytes % 35.6 (24.0-44.0) % Monocytes % 5.2 (0.0-12.0) % Eosinophils % 3.5 (0.00-5.0) % Basophils % 0.3 (0.0-0.4) % Absolute Granulocytes 5.84 (1.4-6.9) Basophils # 0.03 (0-0.4) PT (9.95-12.35) SECONDS INR (0.8-3.0) D-Dimer (215-500) ng/mL Sodium (137-145) mmol/L Potassium (3.5-5.1) mmol/L Chloride (98-107) mmol/L Carbon Dioxide (22-30) mmol/L Anion Gap (5-15) MEQ/L BUN (7-17) mg/dL Creatinine (0.52-1.04) mg/dL Estimated GFR ML/MIN Glucose (74-106) mg/dL Calcium (8.4-10.2) mg/dL Total Bilirubin (0.2-1.3) mg/dL AST (14-36) U/L ALT (0-35) U/L Alkaline Phosphatase (38-126) U/L Troponin I (0.000-0.034) ng/mL NT-Pro-B Natriuret Pep (0-450) pg/mL Serum Total Protein (6.3-8.2) g/dL Albumin (3.5-5.0) g/dL - Progress Progress: improved Air Movement: good Progress Note: 05/07/20 22:38 CTA of chest shows a left lower lobe 15.6 mm nodule with a small cavitary central component abutting the major fissure which may reflect the patient's known lung malignancy. There is trace right pleural effusion. There is no evidence of pulmonary emboli. There is no evidence of pneumonia. Blood Culture(s) Obtained: No Antibiotics given: No Counseled pt/family regarding: lab results, diagnosis, need for follow-up, rad results - Departure Departure Disposition: Home Clinical Impression: Chest pain, Left lower lobe pulmonary nodule Condition: Stable Critical Care Time: No Referrals: JACOBO HAYNES [Primary Care Provider] - Additional Instructions: Take your medication as prescribed. Call your primary care doctor tomorrow to follow-up on the left lung nodule.
[2020-05-07] MEDS ORDERED: Zofran 4 MG/2 ML VIAL IV ONE (19:55)
[2020-05-07] MEDS ORDERED: MORPHINE SULFATE 4 MG INJ IV ONE ×2 (19:55→21:24)
[2020-05-07] MEDS ORDERED: Zofran 4 MG/2 ML VIAL ONE (20:01)
[2020-05-07] MEDS ORDERED: MORPHINE SULFATE 4 MG INJ ONE ×2 (20:02→21:32)
[2020-05-07 20:41] LABS: Absolute Neutrophil Ct (ANC) 5.84 (1.4-6.9); BASOPHIL % 0.3 % (0.0-0.4); Basophil (Absolute #) 0.03 (0-0.4); Eosinophil % 3.5 % (0.00-5.0); Eosinophil (Absolute #) 0.37 (0-0.5); Hematocrit 33.4 % (35-47); Hemoglobin 10.3 gm/dl (12.0-16.0); Lymphocyte (Absolute #) 3.76 (1.0-4.6); Lymphocytes % 35.6 % (24.0-44.0); Mean Cell Volume 89.5 fl (78-100); Mean Corpuscular Hemoglobin 27.6 pg (26-32); Mean Corpuscular Hgb Concent. 30.8 g/dl (32-36); Mean Platelet Volume 9.7 fl (7.5-11.0); Monocyte (Absolute #) 0.55 (0.0-1.3); Monocytes % 5.2 % (0.0-12.0); Neutrophil % 55.4 % (36.0-66.0); Platelet Count 338 K/mm3 (150-450); Red Blood Count 3.73 M/mm3 (4.1-5.4); Red Cell Distribution Width 13.7 % (11.5-14.0); White Blood Count 10.6 K/mm3 (4.0-10.5)
[2020-05-07 20:42] LABS: INR 1.09 (0.8-3.0); PROTIME 12.3 SECONDS (9.95-12.35)
[2020-05-07 21:03] LABS: ALKALINE PHOSPHATASE 119 U/L (38-126); ANION GAP 13.9 MEQ/L (5-15); BLOOD UREA NITROGEN 11 mg/dL (7-17); CHLORIDE 104 mmol/L (98-107); Calcium 8.8 mg/dL (8.4-10.2); Carbon Dioxide 24 mmol/L (22-30); Creatinine 1 0.62 mg/dL (0.52-1.04); Glucose 150 mg/dL (74-106); NT PRO BNP 538 pg/mL (0-450); Potassium 3.6 mmol/L (3.5-5.1); SGOT/AST 30 U/L (14-36); SGPT/ALT 20 U/L (0-35); SODIUM 138 mmol/L (137-145); Total Protein 7.5 g/dL (6.3-8.2)
[2020-05-07 21:05] VITALS: O2SAT 97
[2020-05-07] MEDS ORDERED: Sodium Chloride 0.9% 1000 ML 1,000 ML IV SCH (21:15)
[2020-05-07] MEDS ORDERED: Sodium Chloride 0.9% 1000 ML 1,000 ML ONE (21:28)
[2020-05-07 22:55] VITALS: BP 148/88; PULSE 78
--- NOTE | 2020-05-08 08:54 | XRAY ---
Indication: Chest pain and palpitations 2 weeks. Elevated d-dimer. Left lung cancer 3 months. Multiple contiguous axial images obtained through the chest using 80 cc Isovue 370 contrast and PE protocol. Comparison: None There is adequate opacification of the pulmonary arteries to include the lobar and segmental branches. No filling defect or pulmonary embolus. Heart is borderline enlarged. Aorta is normal in course and caliber. No pathologic mediastinal/hilar lymphadenopathy. Small hiatal hernia. Examination of the lung parenchyma demonstrates 1.6 cm left lower lobe noncalcified mass presumed known malignancy. Tiny right effusion. No other pulmonary mass, infiltrate, or effusion. Bony thorax intact with mild degenerative changes throughout the spine and tiny multilevel Schmorl nodes. 1.7 cm T6 and 0.8 cm T8 lytic lesions. Limited upper abdomen demonstrates fatty liver and cholecystectomy. Impression: 1. Negative pulmonary embolus. 2. 1.6 cm left lower lobe noncalcified mass presumed known malignancy. 3. T6 and T8 indeterminant lytic lesions. Metastasis not completely excluded. MRI with contrast exam may yield further information. 4. Incidental tiny right effusion, small hiatal hernia, and fatty liver. Comment: Preliminary interpretation was made by [facility] who does not report T6/T8 lesions.
--- NOTE | 2020-05-08 08:56 | XRAY ---
Indication: Chest pain and palpitations. Left lung cancer 3 months. Comparison: June 04, 2019. Portable chest now demonstrates CT proven small left lower lobe nodule. Remaining heart and lungs unremarkable. Bony thorax intact with minimal degenerative changes.
== END 2020-05-07 22:55 | disposition home or self-care (01) ==
LOC: ED 19:36
DX: R07.9 Chest pain, unspecified (principal); R91.1 Solitary pulmonary nodule; I10 Essential (primary) hypertension; E11.9 Type 2 diabetes mellitus without complications; K21.9 Gastro-esophageal reflux disease without esophagitis; F41.9 Anxiety disorder, unspecified; F31.9 Bipolar disorder, unspecified; Z85.42 Personal history of malignant neoplasm of other parts of uterus; K90.0 Celiac disease
CPT/HCPCS: 36000; 36415; 71045; 71260; 80053; 83880; 84484; 85025; 85379; 85610; 93005; 93041; 94760; 96360; 96374; 96375; 99285; J2270; J2405

== ENCOUNTER 2020-11-25 18:49 | Emergency (ER) | payer OTHER ==
[2020-11-25] MEDS ORDERED: Zofran 4 MG/2 ML VIAL IV ONE (19:46)
[2020-11-25] MEDS ORDERED: Sodium Chloride 0.9% 1000 ML 1,000 ML IV STA ×2 (19:46→20:55)
[2020-11-25] MEDS ORDERED: Hydromorphone 1 mg/ml Injection IV ONE ×2 (19:46→21:53)
--- NOTE | 2020-11-25 19:56 | ERPHSYRPT ---
- History of Present Illness Time Seen by Provider: 11/25/20 19:35 Historian: patient Exam Limitations: no limitations Patient Subjective Stated Complaint: pt states "I have been having left back pain for a week. I was suppose to see my doctor tomorrow but the pain is to m uch." Triage Nursing Assessment: pt came into the er via wheelchair; pt is axo x4; c/o left flank pain; pt states that pain radiates to left upper abd; tenderness with palpation to left flank region; LUQ tenderness with palpation; pt states increased pain over the past 2 days; active bowel sounds in all quads; urine yellow and cloudy; clear lung sounds in all lobes; pt states diarrhea present; pt denies vomiting; c/o nausea; vitals wnl Physician History: This is a morbidly obese, insulin-dependent diabetic 45-year-old white female with a history of hypertension and gout and who complains of a 1 week history of left upper quadrant, left lower quadrant and left flank pain. Patient states she has been nauseated but has not had any vomiting. She did have some diarrhea stools today. She has not had a fever. She denies chest pain and she denies shortness of breath. Patient has an appointment to see her primary care physician tomorrow but she states the pain was too intense to wait till tomorrow Timing/Duration: week(s) (one) Quality: sharpness, stabbing Abdominal Pain Onset Location: LUQ, LLQ, flank (Left) Severity of Pain-Max: moderate Severity of Pain-Current: moderate Modifying Factors: Improves With: nothing Associated Symptoms: diarrhea, loss of appetite, nausea, No chest pain, No shortness of breath, No vomiting Previous symptoms: no prior history, no recent treatment Allergies/Adverse Reactions: aspirin Allergy (Mild, Verified 11/25/20 19:10) ibuprofen Allergy (Verified 11/25/20 19:10) ketorolac tromethamine [From Toradol] Allergy (Verified 11/25/20 19:10) Difficulty Breathing naproxen Allergy (Verified 11/25/20 19:10) Home Medications: Propranolol HCl [Propranolol HCl ER] 60 mg PO DAILY 12/01/15 [History] allopurinoL [Allopurinol] 300 mg PO DAILY 12/01/15 [History] Hydroxyzine HCl 25 mg [Atarax 25 mg] 25 mg PO TID 02/27/18 [History] Colchicine 0.6 mg PO HS 01/24/19 [History] Insulin Glargine,Hum.rec.anlog [Basaglar Kwikpen U-100] 45 unit SQ DAILY 01/24/19 [History] Lisinopril 20 mg [Zestril 20 MG] 20 mg PO DAILY 01/24/19 [History] Sertraline HCl 50 mg [Zoloft 50 mg Tablet] 50 mg PO BID 01/24/19 [History] Insulin Glargine,Hum.rec.anlog [Basaglar Kwikpen U-100] 65 unit SQ HS 09/05/19 [History] Aripiprazole [Abilify] 10 mg PO DAILY 05/07/20 [History] Rosuvastatin Calcium [Crestor] 10 mg PO DAILY 11/25/20 [History] Trazodone HCl 50 mg [Desyrel 50 mg] 50 mg PO HS 11/25/20 [History] Hx Tetanus, Diphtheria Vaccination/Date Given: Yes Hx Influenza Vaccination/Date Given: Yes Hx Pneumococcal Vaccination/Date Given: Yes Travel Risk - International Travel Have you traveled outside of the country in past 3 weeks: No - Coronavirus Screening Are you exhibiting any of the following symptoms?: No Close contact with a COVID-19 positive Pt in past 14-21 Days: No - Review of Systems Constitutional: No Symptoms Eyes: No Symptoms Ears, Nose, & Throat: No Symptoms Respiratory: No Symptoms Cardiac: No Symptoms Abdominal/Gastrointestinal: Abdominal Pain, Nausea, Diarrhea Genitourinary Symptoms: Flank Pain (Left) Musculoskeletal: No Symptoms Skin: No Symptoms Neurological: No Symptoms Psychological: No Symptoms Endocrine: No Symptoms Hematologic/Lymphatic: No Symptoms Immunological/Allergic: No Symptoms All Other Systems: Reviewed and Negative - Past Medical History Pertinent Past Medical History: Yes Neurological History: Migraines ENT History: Macular Degeneration Cardiac History: High Cholesterol, Hypertension Respiratory History: No Pertinent History Endocrine Medical History: Diabetes Type II Musculoskeletal History: No Pertinent History GI Medical History: GERD, Gallbladder Disease History: No Pertinent History Psycho-Social History: Anxiety, Bipolar, Depression Female Reproductive Disorders: Abnormal Uterine Bleeding, Uterine Cancer Other Medical History: gout, celiac disease, anemia - Past Surgical History Past Surgical History: Yes Neuro Surgical History: No Pertinent History Cardiac: No Pertinent History Respiratory: No Pertinent History Gastrointestinal: Cholecystectomy Genitourinary: No Pertinent History Musculoskeletal: No Pertinent History Female Surgical History: Hysterectomy Other Surgical History: Gall baldder 1998 - Social History Smoking Status: Never smoker Exposure to second hand smoke: No Drug Use: none Patient Lives Alone: No - Female History Hx Now: No - Nursing Vital Signs Nursing Vital Signs: Initial Vital Signs Temperature 98.1 F 11/25/20 19:13 Pulse Rate 99 H 11/25/20 19:13 Respiratory Rate 24 11/25/20 19:13 Blood Pressure 122/78 11/25/20 19:13 O2 Sat by Pulse Oximetry 97 11/25/20 19:13 Pain Scale Pain Intensity 5 - Physical Exam General Appearance: no apparent distress, alert, anxiety, obese Eye Exam: PERRL/EOMI, eyes nml inspection Ears, Nose, Throat Exam: normal ENT inspection, moist mucous membranes Neck Exam: normal inspection, non-tender, supple, full range of motion Respiratory Exam: normal breath sounds, lungs clear, airway intact, No chest tenderness, No respiratory distress Cardiovascular Exam: regular rate/rhythm, normal heart sounds, normal peripheral pulses Gastrointestinal/Abdomen Exam: tenderness (Left upper quadrant and left lower quadrant), guarding, No rebound Pelvic Exam: not done Rectal Exam: not done Back Exam: normal inspection, normal range of motion, CVA tenderness (Left side), No vertebral tenderness Extremity Exam: normal inspection, normal range of motion, pelvis stable Neurologic Exam: alert, oriented x 3, cooperative, digital product manager II-XII nml as tested, normal mood/affect, nml cerebellar function, nml station & gait, sensation nml Skin Exam: normal color, warm, dry Lymphatic Exam: No adenopathy SpO2 Interpretation: normal SpO2: 97 O2 Delivery: Room Air - Course Nursing assessment & vital signs reviewed: Yes Ordered Tests: Active Orders 24 hr Category Date Time Status EKG-ER Only STAT Care 11/25/20 21:15 Active IV Insertion STAT Care 11/25/20 19:46 Active ABDOMEN AND PELVIS W/0 CONTRAS [CT] Stat Exams 11/25/20 19:47 Taken AMYLASE Stat Lab 11/25/20 20:05 Completed CBC W DIFF Stat Lab 11/25/20 20:05 Completed CMP Stat Lab 11/25/20 20:05 Completed LIPASE Stat Lab 11/25/20 20:05 Completed Lactic Acid Stat Lab 11/25/20 20:43 Completed T4 (Thyroxine) Stat Lab 11/25/20 20:05 Completed TROPONIN Q3H Lab 11/25/20 20:05 Completed TSH [TSH, 3RD Generation] Stat Lab 11/25/20 20:05 Received UA W/RFX UR CULTURE Stat Lab 11/25/20 19:58 Completed Medication Summary Generic Name Dose Route Start Last Admin Trade Name Freq PRN Reason Stop Dose Admin Sodium Chloride 1,000 mls @ 999 mls/hr 11/25/20 20:55 11/25/20 21:02 Sodium Chloride 0.9% 1000 Ml IV 11/25/20 21:55 999 mls/hr .Q1H1M STA Administration Discontinued Medications Generic Name Dose Route Start Last Admin Trade Name Freq PRN Reason Stop Dose Admin Hydromorphone HCl 1 mg 11/25/20 19:46 11/25/20 20:00 Hydromorphone 1 Mg/Ml Injection IV 11/25/20 19:47 1 mg STAT ONE Administration Hydromorphone HCl Confirm 11/25/20 19:59 Hydromorphone 1 Mg/Ml Injection Administered 11/25/20 20:00 Dose 1 mg .ROUTE .STK-MED ONE Sodium Chloride 1,000 mls @ 999 mls/hr 11/25/20 19:46 11/25/20 21:01 Sodium Chloride 0.9% 1000 Ml IV 11/25/20 20:46 Infused .Q1H1M STA Infusion Sodium Chloride Confirm 11/25/20 19:59 Sodium Chloride 0.9% 1000 Ml Administered 11/25/20 20:00 Dose 1,000 mls @ ud .ROUTE .STK-MED ONE Sodium Chloride Confirm 11/25/20 21:00 Sodium Chloride 0.9% 1000 Ml Administered 11/25/20 21:01 Dose 1,000 mls @ ud .ROUTE .STK-MED ONE Ondansetron HCl 4 mg 11/25/20 19:46 11/25/20 20:00 Zofran 4 Mg/2 Ml Vial IV 11/25/20 19:47 4 mg STAT ONE Administration Ondansetron HCl Confirm 11/25/20 19:59 Zofran 4 Mg/2 Ml Vial Administered 11/25/20 20:00 Dose 4 mg .ROUTE .STK-MED ONE Promethazine HCl 25 mg 11/25/20 20:57 11/25/20 21:03 Phenergan 25 Mg Inj IM 11/25/20 20:58 25 mg STAT ONE Administration Promethazine HCl Confirm 11/25/20 21:00 Phenergan 25 Mg Inj Administered 11/25/20 21:01 Dose 25 mg .ROUTE .STK-MED ONE Lab/Rad Data: Laboratory Result Diagrams 11/25/20 20:05 11/25/20 20:05 Laboratory Results 11/25/20 11/25/20 11/25/20 Range/Units 20:43 20:05 20:05 WBC (4.0-10.5) K/mm3 RBC (4.1-5.4) M/mm3 Hgb (12.0-16.0) gm/dl Hct (35-47) % MCV (78-100) fl MCH (26-32) pg MCHC (32-36) g/dl RDW (11.5-14.0) % Plt Count (150-450) K/mm3 MPV (7.5-11.0) fl Gran % (36.0-66.0) % Eos # (Auto) (0-0.5) Absolute Lymphs (auto) (1.0-4.6) Absolute Monos (auto) (0.0-1.3) Lymphocytes % (24.0-44.0) % Monocytes % (0.0-12.0) % Eosinophils % (0.00-5.0) % Basophils % (0.0-0.4) % Absolute Granulocytes (1.4-6.9) Basophils # (0-0.4) Sodium (137-145) mmol/L Potassium (3.5-5.1) mmol/L Chloride (98-107) mmol/L Carbon Dioxide (22-30) mmol/L Anion Gap (5-15) MEQ/L BUN (7-17) mg/dL Creatinine (0.52-1.04) mg/dL Estimated GFR ML/MIN Glucose (74-106) mg/dL Lactic Acid 2.0 (0.4-2.0) Calcium (8.4-10.2) mg/dL Total Bilirubin (0.2-1.3) mg/dL AST (14-36) U/L ALT (0-35) U/L Alkaline Phosphatase (38-126) U/L Troponin I < 0.012 (0.000-0.034) ng/mL Serum Total Protein (6.3-8.2) g/dL Albumin (3.5-5.0) g/dL Amylase (30-110) U/L Lipase (23-300) U/L Thyroxine (T4) 7.74 (5.53-10.96) ug/dL Urine Color (YELLOW) Urine Appearance (CLEAR) Urine pH (5-6) Ur Specific Gilman (1.005-1.025) Urine Protein (Negative) Urine Ketones (NEGATIVE) Urine Blood (0-5) Blu/ul Urine Nitrite (NEGATIVE) Urine Bilirubin (NEGATIVE) Urine Urobilinogen (0-1) mg/dL Ur Leukocyte Esterase (NEGATIVE) Urine WBC (Auto) (0-5) /HPF Urine RBC (Auto) (0-2) /HPF U Hyaline Cast (Auto) (0-2) /LPF U Epithel Cells (Auto) (FEW) /HPF Urine Bacteria (Auto) (NEGATIVE) /HPF Urine Mucus (Auto) (NEGATIVE) /HPF Urine Culture Reflexed (NO) Urine Glucose (NEGATIVE) mg/dL 11/25/20 11/25/20 11/25/20 Range/Units 20:05 20:05 19:58 WBC 14.8 H (4.0-10.5) K/mm3 RBC 3.59 L (4.1-5.4) M/mm3 Hgb 9.7 L (12.0-16.0) gm/dl Hct 31.4 L (35-47) % MCV 87.5 (78-100) fl MCH 27.0 (26-32) pg MCHC 30.9 L (32-36) g/dl RDW 15.5 H (11.5-14.0) % Plt Count 320 (150-450) K/mm3 MPV 9.5 (7.5-11.0) fl Gran % 65.4 (36.0-66.0) % Eos # (Auto) 0.35 (0-0.5) Absolute Lymphs (auto) 4.21 (1.0-4.6) Absolute Monos (auto) 0.52 (0.0-1.3) Lymphocytes % 28.4 (24.0-44.0) % Monocytes % 3.5 (0.0-12.0) % Eosinophils % 2.4 (0.00-5.0) % Basophils % 0.3 (0.0-0.4) % Absolute Granulocytes 9.70 H (1.4-6.9) Basophils # 0.05 (0-0.4) Sodium 134 L (137-145) mmol/L Potassium 5.0 (3.5-5.1) mmol/L Chloride 100 (98-107) mmol/L Carbon Dioxide 20 L (22-30) mmol/L Anion Gap 18.8 H (5-15) MEQ/L BUN 50 H (7-17) mg/dL Creatinine 3.21 H (0.52-1.04) mg/dL Estimated GFR 16.5 ML/MIN Glucose 174 H (74-106) mg/dL Lactic Acid (0.4-2.0) Calcium 9.4 (8.4-10.2) mg/dL Total Bilirubin 0.30 (0.2-1.3) mg/dL AST 26 (14-36) U/L ALT 21 (0-35) U/L Alkaline Phosphatase 108 (38-126) U/L Troponin I (0.000-0.034) ng/mL Serum Total Protein 8.3 H (6.3-8.2) g/dL Albumin 4.6 (3.5-5.0) g/dL Amylase 60 (30-110) U/L Lipase 255 (23-300) U/L Thyroxine (T4) (5.53-10.96) ug/dL Urine Color YELLOW (YELLOW) Urine Appearance SLIGHTLY CLOUDY (CLEAR) Urine pH 5.0 (5-6) Ur Specific Gilman 1.018 (1.005-1.025) Urine Protein 30 (Negative) Urine Ketones NEGATIVE (NEGATIVE) Urine Blood NEGATIVE (0-5) Blu/ul Urine Nitrite NEGATIVE (NEGATIVE) Urine Bilirubin NEGATIVE (NEGATIVE) Urine Urobilinogen NEGATIVE (0-1) mg/dL Ur Leukocyte Esterase NEGATIVE (NEGATIVE) Urine WBC (Auto) NONE (0-5) /HPF Urine RBC (Auto) NONE (0-2) /HPF U Hyaline Cast (Auto) 6-10 (0-2) /LPF U Epithel Cells (Auto) NONE (FEW) /HPF Urine Bacteria (Auto) NONE (NEGATIVE) /HPF Urine Mucus (Auto) SLIGHT (NEGATIVE) /HPF Urine Culture Reflexed NO (NO) Urine Glucose 150 (NEGATIVE) mg/dL - Progress Progress: improved, pain not gone completely, re-examined Progress Note: 11/25/20 20:44 CAT scan of the abdomen and pelvis without contrast when compared to CAT scan of abdomen pelvis dated October 15, 2019, there is interval left lower lobe lung nodule excision. There is stable minimal colonic diverticulosis and a 24.4 cm fatty hepatomegaly. There is a new remote appearing T12 superior endplate fracture with 25% height loss. The remaining abdomen pelvis CAT scan is negative. 11/25/20 20:59 Medical decision making: This patient has chronic leukocytosis. She also has chronic anemia. What is new today on her lab work-up is that her BUN creatinine is higher than typical for her. We will hydrate her. We will send her home with a prescription for Zofran. Patient does have an appointment with her nurse practitioner tomorrow morning. I will have her go to our laboratory tomorrow morning at 9 AM to repeat a BMP. I will have lab fax the results to her nurse practitioner Sally Miller tomorrow morning so her practitioner can review her labs by the time the patient arrives at her 11 AM appointment. Counseled pt/family regarding: lab results, diagnosis, need for follow-up, rad results - Departure Departure Disposition: Home Clinical Impression: Abdominal pain, Renal insufficiency Condition: Stable Critical Care Time: No Referrals: JACOBO MILLER [Primary Care Provider] - Additional Instructions: Drink plenty fluids. Keep your appointment tomorrow morning at 11 AM. At 9 AM, return to the [facility] lab to have your BMP redrawn. Return to the emergency department sooner if your symptoms recur/worsen. Prescriptions: Ondansetron ODT 4 MG [Zofran Odt 4 mg] 4 mg PO Q6H PRN PRN #10 tab.rapdis PRN Reason: Vomiting
[2020-11-25] MEDS ORDERED: Zofran 4 MG/2 ML VIAL ONE (19:59)
[2020-11-25] MEDS ORDERED: Sodium Chloride 0.9% 1000 ML 1,000 ML ONE ×2 (19:59→21:00)
[2020-11-25] MEDS ORDERED: Hydromorphone 1 mg/ml Injection ONE ×2 (19:59→21:55)
[2020-11-25 20:09] LABS: BASOPHIL % 0.3 % (0.0-0.4); Basophil (Absolute #) 0.05 (0-0.4); Eosinophil % 2.4 % (0.00-5.0); Eosinophil (Absolute #) 0.35 (0-0.5); Hematocrit 31.4 % (35-47); Hemoglobin 9.7 gm/dl (12.0-16.0); Lymphocyte (Absolute #) 4.21 (1.0-4.6); Lymphocytes % 28.4 % (24.0-44.0); Mean Cell Volume 87.5 fl (78-100); Mean Corpuscular Hgb Concent. 30.9 g/dl (32-36); Mean Platelet Volume 9.5 fl (7.5-11.0); Monocyte (Absolute #) 0.52 (0.0-1.3); Monocytes % 3.5 % (0.0-12.0); Neutrophil % 65.4 % (36.0-66.0); Platelet Count 320 K/mm3 (150-450); Red Blood Count 3.59 M/mm3 (4.1-5.4); Red Cell Distribution Width 15.5 % (11.5-14.0); White Blood Count 14.8 K/mm3 (4.0-10.5)
[2020-11-25 20:19] LABS: Appearance SLIGHTLY CLOUDY (CLEAR); Bilirubin NEGATIVE (NEGATIVE); Blood NEGATIVE Ery/ul (0-5); Glucose 150 mg/dL (NEGATIVE); Ketones NEGATIVE (NEGATIVE); Leukocyte Esterase NEGATIVE (NEGATIVE); Mucus SLIGHT /HPF (NEGATIVE); Nitrite NEGATIVE (NEGATIVE); Protein,Urine Dip 30 (Negative); Specific Gravity 1.018 (1.005-1.025); Urobilinogen NEGATIVE mg/dL (0-1)
[2020-11-25 20:21] LABS: ALBUMIN 4.6 g/dL (3.5-5.0); ANION GAP 18.8 MEQ/L (5-15); BILIRUBIN,TOTAL 0.3 mg/dL (0.2-1.3); Calcium 9.4 mg/dL (8.4-10.2); Creatinine 1 3.21 mg/dL (0.52-1.04); EST GLOMERULAR FILTRATION RATE 16.5 ML/MIN; Total Protein 8.3 g/dL (6.3-8.2)
[2020-11-25] MEDS ORDERED: Phenergan 25 MG INJ IM ONE (20:57)
[2020-11-25] MEDS ORDERED: Phenergan 25 MG INJ ONE (21:00)
[2020-11-25 22:07] VITALS: BP 92/50; PULSE 88; O2SAT 94
--- NOTE | 2020-11-26 09:06 | XRAY ---
Exam: CT of the abdomen and pelvis without IV contrast from 11/25/2020. CTDI: 31.72 Comparison: CT of the abdomen and pelvis with IV contrast from 10/15/2019. Indication: 45-year-old female with left upper quadrant abdominal pain/left flank pain, nausea, vomiting, and diarrhea for one week; no history of injury. The patient is status post "complete" hysterectomy in 2019 due to uterine cancer. She also has a history of prior cholecystectomy and resection of a left lower lobe lung nodule in 2019. Technique: Non-IV contrast axial images were obtained through the abdomen and pelvis. No CT oral contrast was given. Reconstructed coronal and sagittal images were created and reviewed. Findings: There appears to have been an interval left lower lobe soft tissue lung nodule excision as compared to 10/15/2019. Some suture material and minimal linear scarring/atelectasis remain at the surgical site. The remainder of the lung bases appears clear. I again see significant diffuse hepatic steatosis with the right lobe of the liver measuring about 23.8 cm in craniocaudal dimension on the coronal images. The left lobe of the liver also appears enlarged measuring about 18.5 cm in craniocaudal dimension on coronal image #68. These findings are unchanged. The patient is noted to be obese. Evaluation of the solid organs is limited on a non-IV contrast study only. No gross liver mass is seen. Surgical clips consistent with prior cholecystectomy are noted. No intrahepatic biliary duct distention is seen. The spleen appears borderline enlarged measuring about 14.0 cm in greatest craniocaudal dimension on sagittal image #178. In retrospect, this also is unchanged. No definite focal splenic mass is seen. The pancreas and adrenal glands appear unremarkable. The kidneys are of normal size and configuration. Prior tiny cyst within the upper pole of the right kidney and the lateral aspect of the middle third of the left kidney are unable to be seen on today's non-IV contrast study. No renal calculi or hydronephrosis is seen. No other definite renal mass is seen. The abdominal aorta appears of normal diameter without evidence of abdominal aortic aneurysm or abnormal retroperitoneal lymphadenopathy. Abundant intraperitoneal fat is seen. There is no free intraperitoneal air. The anterior abdominal wall appears intact. The appendix is seen within the right lower quadrant and appears unremarkable. No bowel distention is seen to suggest obstruction. No definite bowel wall thickening is seen. I do note some minimal colonic diverticulosis within the descending colon and sigmoid colon. Within the pelvis, the uterus is absent. Neither ovary is seen as well. I see no abnormal pelvic lymphadenopathy or free intraperitoneal fluid. A mild amount of urine is seen within the urinary bladder. No other pelvic mass is seen. The skeleton reveals a superior endplate T12 fracture with approximately 25% anterior wedging. This is new from the prior CT dated 10/15/2019. However, it appears that this is probably not acute. Correlate clinically. Significant focal vacuum disc phenomena is seen at the T11-T12 disc space. Mild degenerative changes are seen within the lower thoracic spine. I also see mild degenerative disc disease at L4-L5 and moderate degenerative disc disease at L5/S1 which both appear about the same as 10/15/2019. The remainder of the skeleton appears intact. Impression: 1. The patient is status post resection of a left lower lobe soft tissue lung nodule as compared to 10/15/2019. Correlate with pathological results. Some minor postsurgical changes are seen at the operative site. 2. I again see diffuse fatty hepatomegaly representing no significant change from 10/15/2019. The patient is status post cholecystectomy as well. 3. Borderline splenomegaly which in retrospect is unchanged from 10/15/2019. No focal splenic mass is seen. 4. No renal calculi, hydronephrosis, or obstructive uropathy is seen. Tiny renal cortical cysts seen on prior post-IV contrast CT from 10/15/2019 are unable to be seen on today's non-IV contrast study. 5. I again see minimal descending colon and sigmoid colon diverticulosis without evidence of diverticulitis. 6. Status post hysterectomy. 7. Obesity. 8. New T12 superior vertebral endplate fracture with about 25% loss of the T12 anterior vertebral body height. Although this is new from 10/15/2019, it does not appear to be acute. Correlate clinically. Other spondylosis changes are seen within the visualized thoracolumbar spine and appear stable. 9. No other acute process is seen within the abdomen or pelvis.
== END 2020-11-25 22:13 | disposition home or self-care (01) ==
LOC: ED 18:49
DX: R10.12 Left upper quadrant pain (principal); R10.32 Left lower quadrant pain; R10.9 Unspecified abdominal pain; N28.9 Disorder of kidney and ureter, unspecified; E66.9 Obesity, unspecified; E11.9 Type 2 diabetes mellitus without complications; Z79.4 Long term (current) use of insulin; R19.7 Diarrhea, unspecified; R11.0 Nausea; E78.00 Pure hypercholesterolemia, unspecified; I10 Essential (primary) hypertension; Z79.899 Other long term (current) drug therapy
CPT/HCPCS: 36000; 36415; 74176; 80053; 81001; 82150; 83605; 83690; 84436; 84443; 84484; 85025; 93005; 96360; 96361; 96372; 96374; 96375; 96376; 99285; J1170; J2405; J2550

== ENCOUNTER 2021-05-09 14:35 | Observation (INO) | payer OTHER ==
[2021-05-09] MEDS ORDERED: Sodium Chloride 0.9% 1000 ML 1,000 ML IV STA ×2 (15:06→16:50)
[2021-05-09] MEDS ORDERED: Zofran 4 MG/2 ML VIAL IV ONE (15:06)
[2021-05-09] MEDS ORDERED: Zofran 4 MG/2 ML VIAL ONE (15:13)
[2021-05-09] MEDS ORDERED: Sodium Chloride 0.9% 1000 ML 1,000 ML ONE ×2 (15:13→16:57)
[2021-05-09 15:16] LABS: Hematocrit 36.8 % (35-47); Hemoglobin 11.4 gm/dl (12.0-16.0); Mean Corpuscular Hemoglobin 26.3 pg (26-32); Mean Platelet Volume 9.4 fl (7.5-11.0); Platelet Count 355 K/mm3 (150-450); Red Blood Count 4.33 M/mm3 (4.1-5.4); Red Cell Distribution Width 14.8 % (11.5-14.0); White Blood Count 13.9 K/mm3 (4.0-10.5)
[2021-05-09 15:26] LABS: ALBUMIN 4.4 g/dL (3.5-5.0); ALKALINE PHOSPHATASE 144 U/L (38-126); AMYLASE 49 U/L (30-110); ANION GAP 21.4 MEQ/L (5-15); BILIRUBIN,TOTAL < 0.10 mg/dL (0.2-1.3); BLOOD UREA NITROGEN 13 mg/dL (7-17); CHLORIDE 99 mmol/L (98-107); Calcium 9.5 mg/dL (8.4-10.2); Carbon Dioxide 22 mmol/L (22-30); Creatinine 1 0.59 mg/dL (0.52-1.04); EST GLOMERULAR FILTRATION RATE > 60.0 ML/MIN; Glucose 258 mg/dL (74-106); LIPASE 152 U/L (23-300); MAGNESIUM 1.5 mg/dL (1.6-2.3); Potassium 4.2 mmol/L (3.5-5.1); SGOT/AST 30 U/L (14-36); SGPT/ALT 22 U/L (0-35); SODIUM 138 mmol/L (137-145); Total Protein 8.2 g/dL (6.3-8.2)
[2021-05-09 15:56] LABS: Lymphocytes 30 % (24-44); Monocyte 1 % (0.0-12.0); Neutrophils 69 % (36.0-66.0); Platelet Estimate NORMAL (NORMAL); Total Cells Counted 100
--- NOTE | 2021-05-09 16:15 | ERPHSYRPT ---
- History of Present Illness Time Seen by Provider: 05/09/21 14:44 Source: patient Exam Limitations: no limitations Patient Subjective Stated Complaint: pt here for n/v/d for a week now, with aches, no fever, was seen this week and had blood tests done Triage Nursing Assessment: pt alert, resp easy, skin w/d/p. face mask in place, no edema noted, abd soft Physician History: 46 years old female with multiple medical problems including diabetes mellitus presented to the ER with chief complaint of nausea vomiting and diarrhea for almost 1 week. He was seen outpatient similar symptoms but does not seem any improvement. She is unable to hold anything down. She feels weak fatigued tired and dehydrated. Denies any abdominal pain. Denies any chest pain palpitations or shortness of breath. She is also having generalized body aches fatigue and tiredness. Feels dehydrated. Does report having similar symptoms in the past with renal failure. Did not receive Covid vaccine. Timing/Duration: week(s) (1), intermittent, gradual onset, worse Severity: moderate Associated Symptoms: nausea, vomiting, chills, weakness, No abdominal pain Allergies/Adverse Reactions: aspirin Allergy (Mild, Verified 05/09/21 14:42) ibuprofen Allergy (Verified 05/09/21 14:42) ketorolac tromethamine [From Toradol] Allergy (Verified 05/09/21 14:42) Difficulty Breathing naproxen Allergy (Verified 05/09/21 14:42) Home Medications: Propranolol HCl [Propranolol HCl ER] 60 mg PO DAILY 12/01/15 [History] allopurinoL [Allopurinol] 300 mg PO DAILY 12/01/15 [History] Hydroxyzine HCl 25 mg [Atarax 25 mg] 25 mg PO TID 02/27/18 [History] Colchicine 0.6 mg PO HS 01/24/19 [History] Insulin Glargine,Hum.rec.anlog [Basaglar Kwikpen U-100] 65 unit SQ DAILY 01/24/19 [History] Sertraline HCl 50 mg [Zoloft 50 mg Tablet] 50 mg PO BID 01/24/19 [History] Insulin Glargine,Hum.rec.anlog [Basaglar Kwikpen U-100] 35 unit SQ HS 09/05/19 [History] Rosuvastatin Calcium [Crestor] 10 mg PO DAILY 11/25/20 [History] Trazodone HCl 50 mg [Desyrel 50 mg] 50 mg PO HS 11/25/20 [History] Amlodipine Besylate 5 mg [Norvasc 5 mg] 1 ea DAILY 05/09/21 [History] Dicyclomine HCl 20 mg [Bentyl 20 mg] 1 ea QID 05/09/21 [History] Ergocalciferol (Vitamin D2) [Vitamin D2] 1 ea WEEKLY 05/09/21 [History] Fenofibrate Nanocrystallized [Fenofibrate] 1 ea DAILY 05/09/21 [History] Glipizide 5 mg [Glucotrol 5 MG] 1 ea DAILY 05/09/21 [History] Lamotrigine 100 mg [lamICTAL 100MG TABLET] 1 ea DAILY 05/09/21 [History] Liraglutide [Victoza 2-Brigido] 1 ea WEEKLY 05/09/21 [History] Loratadine 10 mg [Claritin 10 mg] 10 mg PO DAILY 05/09/21 [History] Hx Tetanus, Diphtheria Vaccination/Date Given: Yes Hx Influenza Vaccination/Date Given: No Hx Pneumococcal Vaccination/Date Given: No Immunizations Up to Date: Yes Travel Risk - International Travel Have you traveled outside of the country in past 3 weeks: No - Coronavirus Screening Are you exhibiting any of the following symptoms?: Yes Symptoms: Vomiting/Diarrhea, Headaches/Body Aches/Fatigue Close contact with a COVID-19 positive Pt in past 14-21 Days: No - Vaccine Status Have you recieved a Covid-19 vaccination: No - Review of Systems Constitutional: Fatigue, Weakness Eyes: No Symptoms Ears, Nose, & Throat: No Symptoms Respiratory: No Symptoms Cardiac: No Symptoms Abdominal/Gastrointestinal: Nausea, Vomiting, Diarrhea, No Abdominal Pain Genitourinary Symptoms: No Symptoms Musculoskeletal: Myalgias Neurological: No Symptoms Psychological: No Symptoms Endocrine: No Symptoms Hematologic/Lymphatic: No Symptoms - Past Medical History Pertinent Past Medical History: Yes Neurological History: Migraines ENT History: Macular Degeneration Cardiac History: High Cholesterol, Hypertension Respiratory History: No Pertinent History Endocrine Medical History: Diabetes Type II Musculoskeletal History: Degenerative Disk Disease GI Medical History: GERD, Gallbladder Disease History: No Pertinent History Psycho-Social History: Anxiety, Bipolar, Depression Female Reproductive Disorders: Uterine Cancer Other Medical History: gout, celiac disease, anemia - Past Surgical History Past Surgical History: Yes Neuro Surgical History: No Pertinent History Cardiac: No Pertinent History Respiratory: Other Gastrointestinal: Cholecystectomy Genitourinary: No Pertinent History Musculoskeletal: No Pertinent History Female Surgical History: Hysterectomy Other Surgical History: Gall baldder 1998, nodule removed from lung - Social History Smoking Status: Never smoker Exposure to second hand smoke: No Drug Use: none Patient Lives Alone: Yes - Female History Hx Last Menstrual Period: hyster Hx Now: No - Nursing Vital Signs Nursing Vital Signs: Initial Vital Signs Temperature 98.3 F 05/09/21 14:47 Pulse Rate 110 H 05/09/21 14:47 Respiratory Rate 18 05/09/21 14:47 Blood Pressure 155/101 05/09/21 14:47 O2 Sat by Pulse Oximetry 95 05/09/21 14:47 Pain Scale Pain Intensity 5 - Physical Exam General Appearance: no apparent distress, alert Eye Exam: PERRL/EOMI, eyes nml inspection Ears, Nose, Throat Exam: normal ENT inspection, pharynx normal Neck Exam: normal inspection, non-tender, full range of motion Respiratory Exam: normal breath sounds, lungs clear Cardiovascular Exam: normal heart sounds, tachycardia Gastrointestinal/Abdomen Exam: soft, normal bowel sounds, No tenderness Back Exam: normal inspection, normal range of motion Extremity Exam: normal inspection, normal range of motion, pelvis stable (You) Neurologic Exam: alert, oriented x 3, cooperative, 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, n ormal mood/affect Skin Exam: normal color SpO2 Interpretation: normal SpO2: 98 O2 Delivery: Room Air (Is back) Ordered Tests: Active Orders 24 hr Category Date Time Status IV Insertion STAT Care 05/09/21 15:06 Active NPO (ED) STAT Care 05/09/21 15:06 Active POCT Glucose Check STAT Care 05/09/21 14:53 Active CHEST 1 VIEW (PORTABLE) Stat Exams 05/09/21 16:11 Taken AMYLASE Stat Lab 05/09/21 15:14 Completed CBC W DIFF Stat Lab 05/09/21 15:14 Completed CMP Stat Lab 05/09/21 15:14 Completed LIPASE Stat Lab 05/09/21 15:14 Completed Lactic Acid Stat Lab 05/09/21 15:06 Completed MAGNESIUM Stat Lab 05/09/21 15:14 Completed Manual Differential NC Stat Lab 05/09/21 15:14 Completed POCT GLUCOSE Stat Lab 05/09/21 14:52 Completed TROPONIN Q3H Lab 05/09/21 15:14 Completed TROPONIN Q3H Lab 05/09/21 18:15 Ordered TROPONIN Q3H Lab 05/09/21 21:15 Ordered TROPONIN Q3H Lab 05/10/21 00:15 Ordered TROPONIN Q3H Lab 05/10/21 03:15 Ordered UA W/RFX UR CULTURE Stat Lab 05/09/21 15:07 Ordered Medication Summary Generic Name Dose Route Start Last Admin Trade Name Freq PRN Reason Stop Dose Admin Magnesium Sulfate/Dextrose 100 mls @ 100 mls/hr 05/09/21 16:45 Magnesium 1 Gm / 100 Ml D5w IV 05/09/21 18:44 Q1H GODWIN Discontinued Medications Generic Name Dose Route Start Last Admin Trade Name Freq PRN Reason Stop Dose Admin Sodium Chloride 1,000 mls @ 999 mls/hr 05/09/21 15:06 05/09/21 15:23 Sodium Chloride 0.9% 1000 Ml IV 05/09/21 16:06 999 mls/hr .Q1H1M STA Administration Sodium Chloride Confirm 05/09/21 15:13 Sodium Chloride 0.9% 1000 Ml Administered 05/09/21 15:14 Dose 1,000 mls @ ud .ROUTE .STK-MED ONE Ondansetron HCl 4 mg 05/09/21 15:06 05/09/21 15:14 Zofran 4 Mg/2 Ml Vial IV 05/09/21 15:07 4 mg STAT ONE Administration Ondansetron HCl Confirm 05/09/21 15:13 Zofran 4 Mg/2 Ml Vial Administered 05/09/21 15:14 Dose 4 mg .ROUTE .STK-MED ONE Lab/Rad Data: Laboratory Result Diagrams 05/09/21 15:14 05/09/21 15:14 Laboratory Results 05/09/21 05/09/21 05/09/21 Range/Units 15:14 15:14 15:14 WBC 13.9 H (4.0-10.5) K/mm3 RBC 4.33 (4.1-5.4) M/mm3 Hgb 11.4 L (12.0-16.0) gm/dl Hct 36.8 (35-47) % MCV 85.0 (78-100) fl MCH 26.3 (26-32) pg MCHC 31.0 L (32-36) g/dl RDW 14.8 H (11.5-14.0) % Plt Count 355 (150-450) K/mm3 MPV 9.4 (7.5-11.0) fl Segmented Neutrophils 69 H (36.0-66.0) % Lymphocytes (Manual) 30 (24-44) % Monocytes (Manual) 1 (0.0-12.0) % Platelet Estimate NORMAL (NORMAL) RBC Morphology NORMAL Sodium 138 (137-145) mmol/L Potassium 4.2 (3.5-5.1) mmol/L Chloride 99 (98-107) mmol/L Carbon Dioxide 22 (22-30) mmol/L Anion Gap 21.4 H (5-15) MEQ/L BUN 13 (7-17) mg/dL Creatinine 0.59 (0.52-1.04) mg/dL Estimated GFR > 60.0 ML/MIN Glucose 258 H (74-106) mg/dL POC Glucometer (74 to 106) mg/dL Lactic Acid (0.4-2.0) Calcium 9.5 (8.4-10.2) mg/dL Magnesium 1.5 L (1.6-2.3) mg/dL Total Bilirubin < 0.10 L (0.2-1.3) mg/dL AST 30 (14-36) U/L ALT 22 (0-35) U/L Alkaline Phosphatase 144 H (38-126) U/L Troponin I < 0.012 (0.000-0.034) ng/mL Serum Total Protein 8.2 (6.3-8.2) g/dL Albumin 4.4 (3.5-5.0) g/dL Amylase 49 (30-110) U/L Lipase 152 (23-300) U/L 05/09/21 05/09/21 Range/Units 15:06 14:52 WBC (4.0-10.5) K/mm3 RBC (4.1-5.4) M/mm3 Hgb (12.0-16.0) gm/dl Hct (35-47) % MCV (78-100) fl MCH (26-32) pg MCHC (32-36) g/dl RDW (11.5-14.0) % Plt Count (150-450) K/mm3 MPV (7.5-11.0) fl Segmented Neutrophils (36.0-66.0) % Lymphocytes (Manual) (24-44) % Monocytes (Manual) (0.0-12.0) % Platelet Estimate (NORMAL) RBC Morphology Sodium (137-145) mmol/L Potassium (3.5-5.1) mmol/L Chloride (98-107) mmol/L Carbon Dioxide (22-30) mmol/L Anion Gap (5-15) MEQ/L BUN (7-17) mg/dL Creatinine (0.52-1.04) mg/dL Estimated GFR ML/MIN Glucose (74-106) mg/dL POC Glucometer 230 H (74 to 106) mg/dL Lactic Acid 4.8 H (0.4-2.0) Calcium (8.4-10.2) mg/dL Magnesium (1.6-2.3) mg/dL Total Bilirubin (0.2-1.3) mg/dL AST (14-36) U/L ALT (0-35) U/L Alkaline Phosphatase (38-126) U/L Troponin I (0.000-0.034) ng/mL Serum Total Protein (6.3-8.2) g/dL Albumin (3.5-5.0) g/dL Amylase (30-110) U/L Lipase (23-300) U/L - Progress Progress: improved Progress Note: 05/09/21 16:45 46 years old morbidly obese is evaluated for vomiting diarrhea without abdominal pain and feeling of fatigue and tiredness. She is given fluid bolus, work-up showed white count of 13, lactate of 4.8 with a gap of 21 and normal bicarb and blood sugar. Chest x-ray showed some effusion on the left but no other obvious airspace disease x-rays reviewed by me, official report is pending. Also has mildly low magnesium and is started on replacement. I believe patient needs IV hydration with Zofran. No obvious focus of infection and elevated lactate is from dehydration/volume depletion, will hold off on antibiotics for now. Discussed with and patient is being admitted. 05/09/21 16:47 Discussed with : Blair Will see patient in: hospital (observation) Counseled pt/family regarding: lab results, diagnosis, rad results - Departure Departure Disposition: Observation Clinical Impression: Nausea vomiting and diarrhea, Dehydration, Hypomagnesemia Condition: Stable Critical Care Time: No Referrals: JACOBO HAYNES [Primary Care Provider] -
[2021-05-09] MEDS ORDERED: Magnesium 1 Gm / 100 Ml D5W*** 100 ML IV ONE ×2 (16:57→17:35)
[2021-05-09] MEDS: Magnesium 1 Gm / 100 Ml D5W*** 100 ML IV SCH ×2 (16:59→17:36)
[2021-05-09] MEDS ORDERED: Zofran 4 MG/2 ML VIAL IV PRN (18:44)
[2021-05-09] MEDS ORDERED: DUONEB 0.5-3 MG/3 ml Neb IH PRN (18:44)
[2021-05-09] MEDS: Sodium Chloride 0.9% 1000 ML 1,000 ML IV SCH (19:01)
[2021-05-09 20:32] LABS: Appearance SLIGHTLY CLOUDY (CLEAR); Bacteria NONE SEEN /HPF (NEGATIVE); Bilirubin NEGATIVE (NEGATIVE); Blood NEGATIVE Ery/ul (0-5); Epithelial Cells RARE /HPF (FEW); Glucose 150 mg/dL (NEGATIVE); Hyaline Casts 0-2 /LPF (0-2); Ketones NEGATIVE (NEGATIVE); Leukocyte Esterase NEGATIVE (NEGATIVE); Mucus SLIGHT /HPF (NEGATIVE); Nitrite NEGATIVE (NEGATIVE); Protein,Urine Dip NEGATIVE (Negative); Specific Gravity 1.023 (1.005-1.025); Urobilinogen NEGATIVE mg/dL (0-1); WBC 0-2 /HPF (0-5)
[2021-05-09] MEDS: MORPHINE SULFATE 2 MG INJ IV PRN (21:41)
--- NOTE | 2021-05-09 21:43 | XRAY ---
Indication: Cough, nausea, vomiting, diarrhea, and body aches. Suspect covid 19. Comparison: 2020. Portable chest demonstrates normal heart and lungs. Bony thorax intact again with minimal degenerative changes. No new/acute findings.
[2021-05-09] MEDS ORDERED: DESYREL 50 MG ONE (22:03)
[2021-05-09] MEDS ORDERED: Desyrel 150 MG ONE (22:04)
[2021-05-09] MEDS ORDERED: BENTYL 20 MG ONE (22:04)
[2021-05-09] MEDS ORDERED: ANTIVERT 25 MG ONE (22:04)
[2021-05-09] MEDS ORDERED: ZOCOR 20MG ONE (22:05)
[2021-05-09] MEDS ORDERED: BENTYL 20 MG PO SCH (22:05)
[2021-05-09] MEDS ORDERED: VENTOLIN COMMON CANISTER IH PRN (22:34)
[2021-05-09] MEDS: ANTIVERT 25 MG PO SCH (22:45)
[2021-05-09] MEDS: BENTYL 20 MG PO SCH (22:45)
[2021-05-09] MEDS: ZOCOR 20MG PO SCH (22:46)
[2021-05-09] MEDS: Desyrel 150 MG PO SCH (22:46)
[2021-05-09] MEDS: DESYREL 50 MG PO SCH (22:46)
[2021-05-09] MEDS: ATARAX 25 MG PO SCH (22:53)
[2021-05-09] MEDS: TYLENOL 325 MG PO PRN (23:29)
[2021-05-10 03:09] LABS: 027 TOX PROD PRESUMPTIVE NEGATIVE (NEGATIVE); TOXIGENIC C. DIFF ORG NEGATIVE (NEGATIVE)
[2021-05-10] MEDS: Sodium Chloride 0.9% 1000 ML 1,000 ML IV SCH ×3 (03:09→18:46)
[2021-05-10 05:40] LABS: BASOPHIL % 0.3 % (0.0-0.4); Basophil (Absolute #) 0.03 (0-0.4); Eosinophil % 3.2 % (0.00-5.0); Eosinophil (Absolute #) 0.33 (0-0.5); Hematocrit 32.3 % (35-47); Hemoglobin 9.8 gm/dl (12.0-16.0); Lymphocytes % 36.6 % (24.0-44.0); Mean Cell Volume 86.6 fl (78-100); Mean Corpuscular Hemoglobin 26.3 pg (26-32); Mean Corpuscular Hgb Concent. 30.3 g/dl (32-36); Mean Platelet Volume 9.4 fl (7.5-11.0); Monocyte (Absolute #) 0.51 (0.0-1.3); Monocytes % 4.9 % (0.0-12.0); Platelet Count 279 K/mm3 (150-450); Red Blood Count 3.73 M/mm3 (4.1-5.4); Red Cell Distribution Width 14.9 % (11.5-14.0); White Blood Count 10.4 K/mm3 (4.0-10.5)
[2021-05-10 06:27] LABS: ALBUMIN 3.7 g/dL (3.5-5.0); ALKALINE PHOSPHATASE 113 U/L (38-126); ANION GAP 13.3 MEQ/L (5-15); BLOOD UREA NITROGEN 10 mg/dL (7-17); CHLORIDE 101 mmol/L (98-107); Calcium 8.5 mg/dL (8.4-10.2); Carbon Dioxide 25 mmol/L (22-30); Creatinine 1 0.62 mg/dL (0.52-1.04); EST GLOMERULAR FILTRATION RATE > 60.0 ML/MIN; Glucose 209 mg/dL (74-106); Potassium 3.2 mmol/L (3.5-5.1); SGOT/AST 25 U/L (14-36); SGPT/ALT 18 U/L (0-35); SODIUM 136 mmol/L (137-145); Total Protein 7.3 g/dL (6.3-8.2)
[2021-05-10] MEDS ORDERED: MEDICATION INTERVENTION PO SCH ×2 (07:45)
[2021-05-10] MEDS ORDERED: MEDICATION INTERVENTION MC SCH (08:00)
[2021-05-10] MEDS ORDERED: IMODIUM 2 MG PO PRN (08:07)
[2021-05-10] MEDS ORDERED: IMODIUM 2 MG PO ONE (08:30)
[2021-05-10] MEDS: BENTYL 20 MG PO SCH ×3 (08:56→21:43)
[2021-05-10] MEDS: PROTONIX 40 MG IV IV SCH (08:59)
[2021-05-10] MEDS: ZYLOPRIM 300 MG PO SCH (08:59)
[2021-05-10] MEDS: NORVASC 5 MG PO SCH (09:00)
[2021-05-10] MEDS: ATARAX 25 MG PO SCH ×3 (09:00→21:42)
[2021-05-10] MEDS: ENOXAPARIN SODIUM SQ SCH (09:00)
[2021-05-10] MEDS: lamICTAL 100MG TABLET PO SCH (09:00)
[2021-05-10] MEDS: ZOLOFT 50 MG TABLET PO SCH (09:00)
[2021-05-10] MEDS: Lantus Insulin SQ SCH (09:00)
[2021-05-10] MEDS: Tricor 145 MG PO SCH (09:00)
[2021-05-10] MEDS: ANTIVERT 25 MG PO SCH ×3 (09:00→21:42)
[2021-05-10] MEDS: CLARITIN 10 MG PO SCH (09:00)
[2021-05-10] MEDS: Glucotrol 5 MG PO SCH ×2 (09:16→15:40)
[2021-05-10] MEDS ORDERED: LIRAGLUTIDE SQ SCH (10:00)
[2021-05-10] MEDS ORDERED: INSULIN GLARGINE HUM REC ANLOG 65 UNIT SQ SCH (10:00)
--- NOTE | 2021-05-10 10:49 | HP ---
HISTORY OF PRESENT ILLNESS: A patient of Delfina Miller who is here for nausea, vomiting, diarrhea for the past week. She had unfortunately gotten to the point where she could not keep anything down. She was seen as an outpatient for some left thigh pain. She had a venous Doppler performed which was negative for deep vein thrombosis. The patient reports that she did have some thigh pain earlier and was warm to the touch but not red. She was started on cephalexin for this for the past couple of days which has helped her pain but does not help her diarrhea. The patient reports that she is not taking any antiviral medication since this started. PAST MEDICAL/SURGICAL HISTORY: Otherwise significant for morbid obesity. She has depression and diabetes mellitus type II on insulin. She has a history of gout. The patient reports that she was COVID tested and negative. She did have a hysterectomy, gallbladder in 1998 removed. She had a lung nodule removed. The patient reports uterine cancer. MEDICATIONS: Her current medications include: Allopurinol 300 mg a day, amlodipine 5 mg a day, cephalexin which has been discontinued; colchicine 0.6 mg at night, dicyclomine 10 mg t.i.d. for irritable bowel syndrome, vitamin D tablet weekly, Fenofibrate 145 mg daily, Glipizide 5 mg b.i.d., hydroxyzine for itching, Insulin Glargine 65 units daily and another 35 units at night, Lamictal 100 mg daily, Victoza 2-Brigido one subcu daily, loratadine 10 mg, meclizine 25 mg t.i.d., Zofran 4 mg every six hours PRN nausea, propranolol 60 mg, Crestor 10 mg, Zoloft 50 mg, trazodone 50 mg 4 tablets at night for sleep. ALLERGIES: ASPIRIN. IBUPROFEN. TORADOL. NAPROXEN. PHYSICAL EXAMINATION: Her vital signs on admission showed a temperature 98.3F, pulse 110, respiratory rate 18, blood pressure 155/101. O2 saturation 95%. HEENT: Normocephalic, atraumatic. Pupils equal round reactive to light. Extraocular movements intact. Oropharynx is pink and moist. NECK: Supple without lymphadenopathy, thyromegaly or JVD. CHEST: Clear to auscultation. HEART: Regular rate and rhythm without murmurs, rubs or gallops. ABDOMEN: Soft. There is noted gastric tenderness but otherwise no palpable masses were felt. EXTREMITIES: Without cyanosis, clubbing or edema. NEUROLOGIC: The patient is alert and oriented x3 with no focal deficits noted. LAB DATA AND TESTS: Laboratory studies in the emergency room showed a white count of 13,900, hemoglobin 11.4, PLT 355,000. She did appear to have slight left shift with 69 neutrophils, 30 lymphs and 1 mono. Lactic acid was 4.8 initially in the emergency room and after fluids the patient was down to 2.9 but has not been rechecked since that time. Her troponin is less than 0.012. Clostridium difficile was negative. Metabolic panel the morning of 05/10/2021 showed glucose 209, BUN 10, creatinine 0.62. Potassium was slightly low at 3.2. Liver enzymes were normal. White count was down to 10,400. She had a portable chest x-ray that was essentially normal. Her telemetry tracing showed to be normal sinus rhythm. ASSESSMENT: A patient with gastroenteritis. We will check procalcitonin level potential for bacterial versus viral etiology. The patient is on IV fluids for fluid hydration. We will recheck the labs today again and check procalcitonin for possibility of this being a bacterial infection. We will hold her Victoza as this can cause some nausea issues. Her cephalexin has already been discontinued. We will watch her with a low dose sliding scale coverage for her insulin with Humalog on a low dose sliding scale coverage. With the patient being down otherwise we will give her 30 units of Lovenox subcu daily until she is better hydrated.
[2021-05-10] MEDS: TYLENOL 325 MG PO PRN ×2 (12:24→18:47)
[2021-05-10] MEDS: Desyrel 150 MG PO SCH (21:44)
[2021-05-10] MEDS: HUMALOG SQ PRN (21:44)
[2021-05-10] MEDS: DESYREL 50 MG PO SCH (21:44)
[2021-05-10] MEDS: ZOCOR 20MG PO SCH (21:44)
[2021-05-10] MEDS ORDERED: COLCHICINE 0.6 MG PO SCH (22:00)
[2021-05-10] MEDS ORDERED: INSULIN GLARGINE HUM REC ANLOG 35 UNIT SQ SCH (22:00)
[2021-05-10] MEDS ORDERED: Lantus Insulin SQ SCH (22:00)
[2021-05-11] MEDS: MORPHINE SULFATE 2 MG INJ IV PRN (00:49)
[2021-05-11] MEDS: Sodium Chloride 0.9% 1000 ML 1,000 ML IV SCH (01:35)
[2021-05-11 07:03] VITALS: PULSE 85
[2021-05-11 07:14] VITALS: BP 151/88; O2SAT 98
[2021-05-11] MEDS: Lantus Insulin SQ SCH (08:50)
[2021-05-11] MEDS: HUMALOG SQ PRN (08:50)
[2021-05-11] MEDS: ANTIVERT 25 MG PO SCH (08:51)
[2021-05-11] MEDS: CLARITIN 10 MG PO SCH (08:51)
[2021-05-11] MEDS: NORVASC 5 MG PO SCH (08:51)
[2021-05-11] MEDS: Tricor 145 MG PO SCH (08:51)
[2021-05-11] MEDS: ZYLOPRIM 300 MG PO SCH (08:51)
[2021-05-11] MEDS: ZOLOFT 50 MG TABLET PO SCH (08:51)
[2021-05-11] MEDS: Glucotrol 5 MG PO SCH (08:51)
[2021-05-11] MEDS: BENTYL 20 MG PO SCH (08:52)
[2021-05-11] MEDS: lamICTAL 100MG TABLET PO SCH (08:52)
[2021-05-11] MEDS: ATARAX 25 MG PO SCH (08:52)
[2021-05-11] MEDS: PROTONIX 40 MG IV IV SCH (08:53)
[2021-05-11] MEDS: ENOXAPARIN SODIUM SQ SCH (08:53)
--- NOTE | 2021-05-11 09:37 | DS ---
DISCHARGE DIAGNOSIS: VIRAL GASTROENTERITIS. HOSPITAL COURSE: The patient is a 46 year-old white female who presented to the emergency room with nausea, vomiting, diarrhea, unable to keep anything down. She was dehydrated and given IV fluids and admitted to the hospital for further evaluation and management. The patient did have elevated lactic acid on admission which was somewhat better after fluid hydration. We checked a procalcitonin which was not elevated leading us to believe that this viral and not bacterial. She did not receive any antibiotics. The patient was given nausea medication as needed. Her stool came back negative for clostridium difficile. She was given Imodium after this did help to stop her bowel movements as she had three the morning I saw her on 05/10/2021 but had not had a bowel movement in the last half day or so when I saw her on 05/11/2021. The patient was able to take IV fluids and even have a regular meal. By the morning of 05/11/2021 was smiling and feeling much better. The patient was felt to be ready for discharge home at that time to follow up in her regular primary care provider's office within the next week. The patient's discharge labs showed her lactic acid to be down to 1.8. Again, her COVID was negative on two separate occasions. Her procalcitonin was 0.076. Her A1C was 8.78, BUN 10, creatinine 0.62, potassium slightly low at 3.2. Liver enzymes were normal. Magnesium was normal at 1.7. Her white count was 10,400, hemoglobin 9.8, PLT count 279,000. Again, the clostridium difficile test was negative. The patient was discharged at this home to continue her usual home medications which include trazodone, Zoloft, Crestor, propranolol extended release, Zofran PRN, meclizine, loratadine, Victoza that was given to her for her diabetes which was initially withheld due to her nausea and abdominal issues. She takes Allopurinol, amlodipine. She had been taking cephalexin for some thigh pain which she was on this for two days and was discontinued. Colchicine, Bentyl, vitamin D, Fenofibrate, glipizide 5 b.i.d., hydroxyzine 25 mg q.i.d. PRN. She does have Insulin Glargine which she will be taking as well and she takes that twice a day.
[2021-05-15] MEDS ORDERED: VITAMIN D2 PO SCH (10:00)
== END 2021-05-11 09:15 | disposition home or self-care (01) ==
LOC: ED 14:35 → MED SURG 18:40
PROVIDERS: ADMIT General Practice; ATTEND Family Medicine
DX: A08.4 Viral intestinal infection, unspecified (principal); R11.2 Nausea with vomiting, unspecified; E11.9 Type 2 diabetes mellitus without complications; R53.1 Weakness; Z79.899 Other long term (current) drug therapy; R51.9 Headache, unspecified; I10 Essential (primary) hypertension; E78.00 Pure hypercholesterolemia, unspecified; E86.0 Dehydration; E83.42 Hypomagnesemia; R74.8 Abnormal levels of other serum enzymes; Z20.822 Contact with and (suspected) exposure to COVID-19
CPT/HCPCS: 36000; 36415; 71045; 80053; 81001; 82150; 82947; 83036; 83605; 83690; 83735; 84145; 84484; 85025; 87493; 93268; 94760; 96360; 96365; 96366; 96374; 99285; G0378; U0003; J1650; J1817; J2270; J2405; J3475; A9270-GY

== ENCOUNTER 2023-09-19 15:29 | Emergency (ER) | payer OTHER ==
[2023-09-19 17:10] VITALS: TEMP 98.8
[2023-09-19 18:35] LABS: Absolute Neutrophil Ct (ANC) 9.09 x10^3/uL (1.4-6.9); BASOPHIL % 0.5 % (0.0-0.4); Basophil (Absolute #) 0.07 x10^3/uL (0-0.4); Eosinophil % 1.5 % (0.00-5.0); Eosinophil (Absolute #) 0.21 x10^3/uL (0-0.5); Hematocrit 38.6 % (35-47); Hemoglobin 12.4 g/dL (12.0-16.0); IMMATURE GRAN # 0.03 x10^3u/L (0.00-0.03); IMMATURE GRAN % 0.2 % (0.00-0.4); Lymphocyte (Absolute #) 3.59 x10^3/uL (1.0-4.6); Lymphocytes % 26.5 % (24.0-44.0); Mean Cell Volume 86.5 fL (78-100); Mean Corpuscular Hemoglobin 27.8 pg (26-32); Mean Corpuscular Hgb Concent. 32.1 g/dL (32-36); Mean Platelet Volume 9.8 fL (7.5-11.0); Monocyte (Absolute #) 0.58 x10^3/uL (0.0-1.3); Monocytes % 4.3 % (0.0-12.0); Platelet Count 305 x10^3/uL (150-450); Red Blood Count 4.46 x10^6/uL (4.1-5.4); Red Cell Distribution Width 13.1 % (11.5-14.0); White Blood Count 13.6 x10^3/uL (4.0-10.5)
[2023-09-19 18:50] LABS: Appearance Cloudy (Clear); Bacteria Few /HPF (None Seen); Bilirubin Negative (Negative); Blood Negative (Negative); Epithelial Cells Few /HPF (None Seen); Glucose, Urine Negative (Negative); Hyaline Casts None Seen /LPF (0-2); Ketones Trace (Negative); Leukocyte Esterase Small (Negative); Nitrite Negative (Negative); Protein,Urine Dip Trace (Negative); RBC 0-2 /HPF (0-5); Specific Gravity 1.025 (1.005-1.030); Urobilinogen 0.2 mg/dL (0.2)
[2023-09-19 18:51] LABS: ADD URINE CULTURE? YES (NO)
[2023-09-19 18:52] LABS: ALBUMIN 4.7 g/dL (3.5-5.0); ANION GAP 19.3 MEQ/L (5-15); BILIRUBIN,TOTAL 0.5 mg/dL (0.2-1.3); Calcium 9.6 mg/dL (8.4-10.2); Creatinine 1 1.27 mg/dL (0.52-1.04); EST GLOMERULAR FILTRATION RATE 51.8 ML/MIN; Potassium 3.8 mmol/L (3.5-5.1); Total Protein 8.8 g/dL (6.3-8.2)
[2023-09-19] MEDS ORDERED: Sodium Chloride 0.9% 1000 ML 1,000 ML IV STA (20:39)
[2023-09-19 20:40] VITALS: RESP 20
[2023-09-19] MEDS ORDERED: PROTONIX 40 MG IV IV ONE ×2 (20:40→20:50)
[2023-09-19] MEDS ORDERED: GI COCKTAIL 45 ML (Maalox/Lidocaine) PO ONE (20:40)
--- NOTE | 2023-09-19 20:40 | ERPHSYRPT ---
- History of Present Illness Time Seen by Provider: 09/19/23 17:40 Historian: patient Exam Limitations: no limitations Patient Subjective Stated Complaint: "I've been having belly pain for the past 4 or 5 days. I've been having nausea too". Triage Nursing Assessment: Pt presents to ER with complaints of diffused abominal pains x 4-5 days, pt complains of nausea. Rates pain 8/10 scale. States pain is a dull constant pain. Pt denies any difficulty urinating or with bowel movements. Denies nausea. Abdomen is soft but tender upon exam. Bowel sounds present x 4 quads. Lungs are clear. Respirations are easy. Skin is pink, warm, and dry. Able to ambulate without difficulty. Physician History: Patient is a 48-year-old female presents to our emergency department for evaluation of diffuse abdominal pain that has been ongoing for approximately 4 to 5 days. Pain described as an ache that is associated with nausea. Patient rates her pain 8 out of 10. No trauma no fever. No diarrhea. No rash. Symptoms are constant. Symptoms are moderate in intensity. No specific worsening improving factors. Patient otherwise voices no complaints at this time. Portions of this note were created with voice recognition technology. There may be grammatical, spelling, punctuation or sound alike errors Timing/Duration: day(s) Activities at Onset: none Quality: aching Abdominal Pain Onset Location: [facility] Pain Radiation: no radiation Severity of Pain-Max: moderate Severity of Pain-Current: mild Modifying Factors: Improves With: palpation Associated Symptoms: nausea Previous symptoms: no prior history Allergies/Adverse Reactions: ibuprofen Allergy (Severe, Verified 09/19/23 17:10) Difficulty Breathing ketorolac tromethamine [From Toradol] Allergy (Severe, Verified 09/19/23 17:10) Difficulty Breathing naproxen Allergy (Severe, Verified 09/19/23 17:10) Difficulty Breathing aspirin Allergy (Mild, Verified 09/19/23 17:10) Home Medications: allopurinoL [Allopurinol] 300 mg PO DAILY 12/01/15 [History] Colchicine 0.6 mg PO HS 01/24/19 [History] Glipizide 5 mg [Glucotrol 5 MG] 10 mg PO BIDAC 05/09/21 [History] Loratadine 10 mg [Claritin 10 mg] 10 mg PO DAILY 05/09/21 [History] Meclizine HCl 25 mg [Antivert 25 mg] 25 mg PO TID 05/09/21 [History] Trazodone HCl 50 mg [Desyrel 50 mg] 200 mg PO HS 05/09/21 [History] Ezetimibe 10 mg [Zetia 10 MG] 10 mg PO DAILY 09/14/22 [History] Semaglutide [Ozempic] 2 mg SQ WEEKLY 09/14/22 [History] Venlafaxine HCl [Venlafaxine HCl ER] 150 mg PO DAILY 09/14/22 [History] Fenofibrate,Micronized 145 mg* [Tricor 145 MG] 145 mg PO DAILY 09/19/23 [History] Insulin Detemir [Levemir Flexpen] 65 units SQ DAILY 09/19/23 [History] Hx Tetanus, Diphtheria Vaccination/Date Given: Yes Hx Influenza Vaccination/Date Given: No Hx Pneumococcal Vaccination/Date Given: No Immunizations Up to Date: No Travel Risk - International Travel Have you traveled outside of the country in past 3 weeks: No - Coronavirus Screening Are you exhibiting any of the following symptoms?: No Close contact with a COVID-19 positive Pt in past 14-21 Days: No - Vaccine Status Have you recieved a Covid-19 vaccination: Yes Mental Health Consultant: Unknown - Vaccination Dates Dates if Unknown: unknown - Review of Systems Constitutional: No Symptoms, No Fever, No Chills Eyes: No Symptoms Ears, Nose, & Throat: No Symptoms Respiratory: No Symptoms, No Cough, No Dyspnea Cardiac: No Symptoms, No Chest Pain, No Edema, No Syncope Abdominal/Gastrointestinal: No Symptoms, No Abdominal Pain, No Nausea, No Vomiting, No Diarrhea Genitourinary Symptoms: No Symptoms, No Dysuria Musculoskeletal: No Symptoms, No Back Pain, No Neck Pain Skin: No Symptoms, No Rash Neurological: No Symptoms, No Dizziness, No Focal Weakness, No Sensory Changes Psychological: No Symptoms Endocrine: No Symptoms Hematologic/Lymphatic: No Symptoms Immunological/Allergic: No Symptoms All Other Systems: Reviewed and Negative - Past Medical History Pertinent Past Medical History: Yes Neurological History: Migraines ENT History: Macular Degeneration Cardiac History: High Cholesterol, Hypertension Respiratory History: No Pertinent History Endocrine Medical History: Diabetes Type II Musculoskeletal History: Degenerative Disk Disease GI Medical History: Diverticulitis, Diverticulosis, GERD, Gallbladder Disease History: No Pertinent History Psycho-Social History: Anxiety, Bipolar, Depression Female Reproductive Disorders: Uterine Cancer Other Medical History: gout, anemia - Past Surgical History Past Surgical History: Yes Neuro Surgical History: No Pertinent History Cardiac: No Pertinent History Respiratory: Other Gastrointestinal: Cholecystectomy Genitourinary: No Pertinent History Musculoskeletal: No Pertinent History Female Surgical History: Hysterectomy Other Surgical History: Gall baldder 1998, nodule removed from lung - Social History Smoking Status: Never smoker Exposure to second hand smoke: No Drug Use: none Patient Lives Alone: Yes - Female History Hx Now: No - Nursing Vital Signs Nursing Vital Signs: Initial Vital Signs Temperature 98.8 F 09/19/23 17:00 Pulse Rate 115 H 09/19/23 17:00 Respiratory Rate 20 09/19/23 17:00 Blood Pressure 141/91 09/19/23 17:00 O2 Sat by Pulse Oximetry 96 09/19/23 17:00 Pain Scale Pain Intensity 4 - Physical Exam General Appearance: no apparent distress, alert Eye Exam: PERRL/EOMI, eyes nml inspection Ears, Nose, Throat Exam: moist mucous membranes Neck Exam: normal inspection, full range of motion Respiratory Exam: normal breath sounds, lungs clear, No respiratory distress Cardiovascular Exam: regular rate/rhythm, normal heart sounds Gastrointestinal/Abdomen Exam: soft, other (Diffuse abdominal pain including tenderness to the right lower quadrant no pelvic pain), No tenderness, No mass Back Exam: normal inspection, normal range of motion, No CVA tenderness, No vertebral tenderness Extremity Exam: normal inspection, normal range of motion, pelvis stable Neurologic Exam: alert, oriented x 3, cooperative, normal mood/affect, nml cerebellar function, sensation nml, No motor deficits Skin Exam: normal color, warm, dry Lymphatic Exam: No adenopathy SpO2 Interpretation: normal SpO2: 100 O2 Delivery: Room Air - Course Nursing assessment & vital signs reviewed: Yes - CT Exams Abdomen/Pelvis CT Interpretation: Tele-radiologist Report (Stable fatty hepatomegaly, appendix not seen no new acute findings) Ordered Tests: Active Orders 24 hr Category Date Time Status IV Insertion STAT Care 09/19/23 18:07 Active ABDOMEN AND PELVIS W/0 CONTRAS [CT] Stat Exams 09/19/23 18:07 Taken AMYLASE Stat Lab 09/19/23 18:30 Completed CBC W DIFF Stat Lab 09/19/23 18:30 Completed CMP Stat Lab 09/19/23 18:30 Completed CULTURE,URINE Stat Lab 09/19/23 18:10 Received LIPASE Stat Lab 09/19/23 18:30 Completed TROPONIN Q4H Lab 09/19/23 18:30 Completed TROPONIN Q4H Lab 09/19/23 22:10 Completed UA W/RFX UR CULTURE Stat Lab 09/19/23 18:10 Completed Medication Summary Discontinued Medications Generic Name Dose Route Start Last Admin Trade Name Freq PRN Reason Stop Dose Admin Al Hydrox/Mg Hydrox/Simethicone Confirm 09/19/23 20:50 Mag Hydrox/Al Hydrox/Simeth 30 Ml Udcup Administered 09/19/23 20:51 Dose 30 ml .ROUTE .STK-MED ONE Albuterol Sulfate 2.5 mg 09/19/23 22:33 09/19/23 22:37 Albuterol Sulfate 2.5 Mg/3 Ml Neb IH 09/19/23 22:34 Not Given STAT ONE Sodium Chloride 1,000 mls @ 999 mls/hr 09/19/23 20:39 09/19/23 22:12 Sodium Chloride 0.9% 1000 Ml IV 09/19/23 21:39 Infused .Q1H1M STA Infusion Sodium Chloride Confirm 09/19/23 20:50 Sodium Chloride 0.9% 1000 Ml Administered 09/19/23 20:51 Dose 1,000 mls @ ud .ROUTE .STK-MED ONE Lidocaine HCl Confirm 09/19/23 20:50 Lidocaine Hcl 2% Viscous 15 Ml Udcup Administered 09/19/23 20:51 Dose 15 ml .ROUTE .STK-MED ONE Magnesium Hydroxide 45 ml 09/19/23 20:40 09/19/23 20:52 Mag Hydrx/Alum Hyd/Simeth/Lido 45 Ml Bottle PO 09/19/23 20:41 45 ml STAT ONE Administration Pantoprazole Sodium 40 mg 09/19/23 20:40 09/19/23 20:52 Pantoprazole 40 Mg Vial IV 09/19/23 20:41 40 mg STAT ONE Administration Pantoprazole Sodium Confirm 09/19/23 20:50 Pantoprazole 40 Mg Vial Administered 09/19/23 20:51 Dose 40 mg IV .STK-MED ONE Lab/Rad Data: Laboratory Result Diagrams 09/19/23 18:30 09/19/23 18:30 Laboratory Results 09/19/23 09/19/23 09/19/23 Range/Units 22:10 18:30 18:30 WBC (4.0-10.5) x10^3/uL RBC (4.1-5.4) x10^6/uL Hgb (12.0-16.0) g/dL Hct (35-47) % MCV (78-100) fL MCH (26-32) pg MCHC (32-36) g/dL RDW (11.5-14.0) % Plt Count (150-450) x10^3/uL MPV (7.5-11.0) fL Gran % (36.0-66.0) % Immature Gran % (Auto) (0.00-0.4) % Nucleat RBC Rel Count (0.00-0.1) % Eos # (Auto) (0-0.5) x10^3/uL Immature Gran # (Auto) (0.00-0.03) x10^3u/L Absolute Lymphs (auto) (1.0-4.6) x10^3/uL Absolute Monos (auto) (0.0-1.3) x10^3/uL Absolute Nucleated RBC (0.00-0.01) x10^3u/L Lymphocytes % (24.0-44.0) % Monocytes % (0.0-12.0) % Eosinophils % (0.00-5.0) % Basophils % (0.0-0.4) % Absolute Granulocytes (1.4-6.9) x10^3/uL Basophils # (0-0.4) x10^3/uL Sodium 138 (137-145) mmol/L Potassium 3.8 (3.5-5.1) mmol/L Chloride 104 (98-107) mmol/L Carbon Dioxide 18 L (22-30) mmol/L Anion Gap 19.3 H (5-15) MEQ/L BUN 20 H (7-17) mg/dL Creatinine 1.27 H (0.52-1.04) mg/dL Estimated GFR 51.8 ML/MIN Glucose 125 H (74-106) mg/dL Calcium 9.6 (8.4-10.2) mg/dL Total Bilirubin 0.50 (0.2-1.3) mg/dL AST 35 (14-36) U/L ALT 28 (0-35) U/L Alkaline Phosphatase 80 (38-126) U/L Troponin I < 0.012 < 0.012 (0.000-0.034) ng/mL Serum Total Protein 8.8 H (6.3-8.2) g/dL Albumin 4.7 (3.5-5.0) g/dL Amylase 67 (30-110) U/L Lipase 118 (23-300) U/L Urine Color (Yellow) Urine Appearance (Clear) Urine pH (4.6-8.0) Ur Specific [place] (1.005-1.030) Urine Protein (Negative) Urine Glucose (UA) (Negative) mg/dL Urine Ketones (Negative) Urine Blood (Negative) Urine Nitrite (Negative) Urine Bilirubin (Negative) Urine Urobilinogen (0.2) mg/dL Ur Leukocyte Esterase (Negative) U Hyaline Cast (Auto) (0-2) /LPF Urine Microscopic RBC (0-5) /HPF Urine Microscopic WBC (0-5) /HPF Ur Epithelial Cells (None Seen) /HPF Urine Bacteria (None Seen) /HPF Urine Culture Reflexed (NO) 09/19/23 09/19/23 Range/Units 18:30 18:10 WBC 13.6 H (4.0-10.5) x10^3/uL RBC 4.46 (4.1-5.4) x10^6/uL Hgb 12.4 (12.0-16.0) g/dL Hct 38.6 (35-47) % MCV 86.5 (78-100) fL MCH 27.8 (26-32) pg MCHC 32.1 (32-36) g/dL RDW 13.1 (11.5-14.0) % Plt Count 305 (150-450) x10^3/uL MPV 9.8 (7.5-11.0) fL Gran % 67.0 H (36.0-66.0) % Immature Gran % (Auto) 0.2 (0.00-0.4) % Nucleat RBC Rel Count 0.0 (0.00-0.1) % Eos # (Auto) 0.21 (0-0.5) x10^3/uL Immature Gran # (Auto) 0.03 (0.00-0.03) x10^3u/L Absolute Lymphs (auto) 3.59 (1.0-4.6) x10^3/uL Absolute Monos (auto) 0.58 (0.0-1.3) x10^3/uL Absolute Nucleated RBC 0.00 (0.00-0.01) x10^3u/L Lymphocytes % 26.5 (24.0-44.0) % Monocytes % 4.3 (0.0-12.0) % Eosinophils % 1.5 (0.00-5.0) % Basophils % 0.5 (0.0-0.4) % Absolute Granulocytes 9.09 H (1.4-6.9) x10^3/uL Basophils # 0.07 (0-0.4) x10^3/uL Sodium (137-145) mmol/L Potassium (3.5-5.1) mmol/L Chloride (98-107) mmol/L Carbon Dioxide (22-30) mmol/L Anion Gap (5-15) MEQ/L BUN (7-17) mg/dL Creatinine (0.52-1.04) mg/dL Estimated GFR ML/MIN Glucose (74-106) mg/dL Calcium (8.4-10.2) mg/dL Total Bilirubin (0.2-1.3) mg/dL AST (14-36) U/L ALT (0-35) U/L Alkaline Phosphatase (38-126) U/L Troponin I (0.000-0.034) ng/mL Serum Total Protein (6.3-8.2) g/dL Albumin (3.5-5.0) g/dL Amylase (30-110) U/L Lipase (23-300) U/L Urine Color Yellow (Yellow) Urine Appearance Cloudy A (Clear) Urine pH 5.0 (4.6-8.0) Ur Specific [place] 1.025 (1.005-1.030) Urine Protein Trace A (Negative) Urine Glucose (UA) Negative (Negative) mg/dL Urine Ketones Trace A (Negative) Urine Blood Negative (Negative) Urine Nitrite Negative (Negative) Urine Bilirubin Negative (Negative) Urine Urobilinogen 0.2 (0.2) mg/dL Ur Leukocyte Esterase Small A (Negative) U Hyaline Cast (Auto) None Seen (0-2) /LPF Urine Microscopic RBC 0-2 (0-5) /HPF Urine Microscopic WBC 3-5 (0-5) /HPF Ur Epithelial Cells Few (None Seen) /HPF Urine Bacteria Few A (None Seen) /HPF Urine Culture Reflexed YES (NO) - Progress Progress: improved Progress Note: Case discussed with Dr. Orona at 1030pm who would be willing to reevaluate patient in hospital. 09/19/23 22:[address] De La Paz who accepts admission to observation at 10:46 PM. 09/19/23 22:42 48-year-old female presents to our ED for evaluation of diffuse abdominal pain and tenderness in the right lower quadrant. CT unable to visualize appendix. Patient in considerable pain. Reveals a leukocytosis of 13.6. We will admit for observation. 09/19/23 22:52 Portions of this note were created with voice recognition technology. There may be grammatical, spelling, punctuation or sound alike errors Complexity of problem addressed is moderate acute complicated No critical care time Complex of data reviewed and analyzed is extensive. Test ordered test reviewed. Results analyzed and correlated clinically. Management discussed with general surgeon and hospitalist who accepts admission to observation. Risk of complication and a risk of morbidity/mortality of patient management is high. Patient requires hospitalization for further evaluation and treatment. Vital stable. Time spent to admit patient is approximately 15 minutes. Plan of care established for shared decision making. Portions of this note were created with voice recognition technology. There may be grammatical, spelling, punctuation or sound alike errors 09/19/23 22:[address] Gonzalez Counseled pt/family regarding: lab results, diagnosis, rad results - Departure Departure Disposition: Observation Clinical Impression: Abdominal pain, Leukocytosis, Hepatomegaly Condition: Stable Critical Care Time: No Referrals: JACOBO HAYNES WARP DRAWER [Primary Care Provider] - Follow up/PCP as directed Instructions: Abdominal pain Additional Instructions: Discharge/Care Plan NEWCRISTI VACA was seen on 09/19/23 in the Emergency Room. The patient was counseled regarding Diagnosis,Lab results, Imaging studies, need for follow up and when to return to the Emergency Room. Prescriptions given: Discharge Note I have spoken with the patient and/or caregivers. I have explained the patient's condition, diagnosis and treatment plan based on the information available to me at this time. I have answered the patient's and/or caregiver's questions and addressed any concerns. The patient and/or caregivers have as good understanding of the patient's diagnosis, condition and treatment plan as can be expected at this point. The vital signs have been stable. The patient's condition is stable and appropriate for discharge from the emergency department. The patient will pursue further outpatient evaluation with the primary care physician or other designated or consulting physician as outlined in the discharge instructions. The patient and/or caregivers are agreeable to this plan of care and follow-up instructions have been explained in detail. The patient and/or caregivers have received these instruction. The patient/and or caregivers are aware that any significant change in condition or worsening of symptoms should prompt an immediate return to this or the closest emergency department or call 911. Prescriptions: PANTOPRAZOLE 40 mg Tablet [Protonix 40MG Tablet] 40 mg PO DAILY 14 Days #14 tab
[2023-09-19] MEDS ORDERED: Sodium Chloride 0.9% 1000 ML 1,000 ML ONE (20:50)
[2023-09-19] MEDS ORDERED: MAALOX ES 30 ML UNIT DOSE ONE (20:50)
[2023-09-19] MEDS ORDERED: XYLOCAINE VISCOUS 2% 15 ML CUP ONE (20:50)
[2023-09-19 22:03] VITALS: BP 110/62
[2023-09-19 22:24] VITALS: O2SAT 100
[2023-09-19] MEDS: PROVENTIL 2.5 MG/3 ML NEB IH ONE ×2 (22:37→22:51)
[2023-09-19] MEDS ORDERED: MORPHINE SULFATE 4 MG INJ IV ONE (22:54)
[2023-09-19] MEDS ORDERED: MORPHINE SULFATE 4 MG INJ ONE (22:59)
[2023-09-19 23:15] VITALS: PULSE 99
--- NOTE | 2023-09-20 08:46 | XRAY ---
Location: Lower abdomen pain. Multiple contiguous axial images obtained through the abdomen and pelvis without contrast. Comparison: June 26, 2023 Lung bases clear. Heart not enlarged. Noncontrasted stomach and bowel loops appear nonobstructed. Appendix not visualized. Again 23 cm fatty hepatomegaly, hysterectomy, and cholecystotomy. No free fluid/air. Remaining liver, pancreas, spleen, adrenal glands, kidneys, ureters, bladder, and aorta are unremarkable for noncontrast exam. Osseous structures intact again with minimal/mild degenerative changes throughout thoracolumbar spine. Stable remote superior endplate fracture T12. Impression: Again chronic findings including fatty hepatomegaly and chronic bony findings. No new/acute findings on this noncontrast exam.
== END 2023-09-19 23:22 | disposition left against medical advice (07) ==
LOC: ED 15:29
DX: R10.84 Generalized abdominal pain (principal); D72.829 Elevated white blood cell count, unspecified; R16.0 Hepatomegaly, not elsewhere classified; R11.0 Nausea; E78.5 Hyperlipidemia, unspecified; I10 Essential (primary) hypertension; E11.9 Type 2 diabetes mellitus without complications; Z79.84 Long term (current) use of oral hypoglycemic drugs; Z79.85 Long-term (current) use of injectable non-insulin antidiabetic drugs; Z79.4 Long term (current) use of insulin; Z79.899 Other long term (current) drug therapy
CPT/HCPCS: 36000; 36415; 74176; 80053; 81001; 82150; 83690; 84484; 85025; 87086; 96360; 96374; 96375; 99284; J2270; J7609; A9270-GY

== ENCOUNTER 2023-12-01 21:21 | Emergency (ER) | payer OTHER ==
--- NOTE | 2023-12-01 21:33 | ERPHSYRPT ---
- History of Present Illness Time Seen by Provider: 12/01/23 21:33 Source: patient Exam Limitations: no limitations Physician History: This is a morbidly obese 48-year-old white female patient of nurse practitioner Paul who presents with seemingly multiple unrelated symptoms. Patient's primary issue is tingling across her face bilaterally and bilateral upper extremities since 730 this evening. She has associated dizziness as well. In addition she states that she has leg swelling and 7 pound weight loss over the last 1 to 2 weeks. Patient denies chest pain. Patient denies headache. Patient denies visual changes. There is been no new changes in her medication. Patient has a history of gout, gastroesophageal reflux disease, insulin- dependent diabetes, celiac disease, migraine headaches, hyperlipidemia, hypertension, anxiety, bipolar disorder and degenerative disc disease. Timing/Duration: today Severity: mild Character of Deficits: other (Numbness bilateral cheeks and bilateral upper extremities) Deficits: no difficulties Baseline/Normal Cognition: alert oriented x 3 Current Cognition: alert oriented x 3 Baseline Gait: walks w/o assistance Associated Symptoms: other (Numbness, tingling bilateral cheeks and bilateral upper extremities) Allergies/Adverse Reactions: ibuprofen Allergy (Severe, Verified 09/19/23 17:10) Difficulty Breathing ketorolac tromethamine [From Toradol] Allergy (Severe, Verified 09/19/23 17:10) Difficulty Breathing naproxen Allergy (Severe, Verified 09/19/23 17:10) Difficulty Breathing NSAIDS (Non-Steroidal Anti-Inflamma Allergy (Severe, Verified 12/01/23 21:51) Difficulty Breathing aspirin Allergy (Mild, Verified 09/19/23 17:10) Home Medications: allopurinoL [Allopurinol] 300 mg PO DAILY 12/01/15 [History] Colchicine 0.6 mg PO HS 01/24/19 [History] Glipizide 5 mg [Glucotrol 5 MG] 10 mg PO BIDAC 05/09/21 [History] Loratadine 10 mg [Claritin 10 mg] 10 mg PO DAILY 05/09/21 [History] Meclizine HCl 25 mg [Antivert 25 mg] 25 mg PO TID 05/09/21 [History] Trazodone HCl 50 mg [Desyrel 50 mg] 200 mg PO HS 05/09/21 [History] Ezetimibe 10 mg [Zetia 10 MG] 10 mg PO DAILY 09/14/22 [History] Semaglutide [Ozempic] 2 mg SQ WEEKLY 09/14/22 [History] Venlafaxine HCl [Venlafaxine HCl ER] 150 mg PO DAILY 09/14/22 [History] Fenofibrate,Micronized 145 mg* [Tricor 145 MG] 145 mg PO DAILY 09/19/23 [History] Insulin Detemir [Levemir Flexpen] 65 units SQ DAILY 09/19/23 [History] Atorvastatin Calcium 10 mg PO DAILY 12/01/23 [History] Dicyclomine HCl 20 mg [Bentyl 20 mg] 20 mg PO QID 12/01/23 [History] Hydroxyzine HCl 25 mg [Atarax 25 mg] 25 mg PO TID 12/01/23 [History] Lamotrigine 100 mg [lamICTAL 100MG TABLET] 100 mg PO DAILY 12/01/23 [History] Omeprazole 20 mg PO DAILY 12/01/23 [History] Topiramate 100 mg [Topamax 100 MG] 100 mg PO DAILY 12/01/23 [History] methocarbamoL [Methocarbamol] 750 mg PO BID 12/01/23 [History] Hx Tetanus, Diphtheria Vaccination/Date Given: Yes Hx Influenza Vaccination/Date Given: No Hx Pneumococcal Vaccination/Date Given: No Travel Risk - International Travel Have you traveled outside of the country in past 3 weeks: No - Coronavirus Screening Are you exhibiting any of the following symptoms?: No Close contact with a COVID-19 positive Pt in past 14-21 Days: No - Vaccine Status Have you recieved a Covid-19 vaccination: Yes Manufacturing 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 - Vaccination Dates Dates if Unknown: unknown - Review of Systems Constitutional: No Symptoms Eyes: No Symptoms Ears, Nose, & Throat: No Symptoms Respiratory: No Symptoms Cardiac: No Symptoms Abdominal/Gastrointestinal: No Symptoms Genitourinary Symptoms: No Symptoms Musculoskeletal: No Symptoms Skin: No Symptoms Neurological: Dizziness, Other (Numbness and tingling bilateral cheeks and bilateral upper extremities) Psychological: No Symptoms Endocrine: No Symptoms Hematologic/Lymphatic: No Symptoms Immunological/Allergic: No Symptoms All Other Systems: Reviewed and Negative - Past Medical History Pertinent Past Medical History: Yes Neurological History: Migraines ENT History: Macular Degeneration Cardiac History: High Cholesterol, Hypertension Respiratory History: No Pertinent History Endocrine Medical History: Diabetes Type II Musculoskeletal History: Degenerative Disk Disease GI Medical History: Diverticulitis, Diverticulosis, GERD, Gallbladder Disease History: No Pertinent History Psycho-Social History: Anxiety, Bipolar, Depression Female Reproductive Disorders: Uterine Cancer Other Medical History: gout, anemia - Past Surgical History Past Surgical History: Yes Neuro Surgical History: No Pertinent History Cardiac: No Pertinent History Respiratory: Other Gastrointestinal: Cholecystectomy Genitourinary: No Pertinent History Musculoskeletal: No Pertinent History Female Surgical History: Hysterectomy Other Surgical History: Gall baldder 1998, nodule removed from lung - Social History Smoking Status: Never smoker Exposure to second hand smoke: Yes Drug Use: none Patient Lives Alone: Yes - Nursing Vital Signs Nursing Vital Signs: Initial Vital Signs Pulse Rate 95 H 12/01/23 21:33 Blood Pressure 168/94 12/01/23 21:33 O2 Sat by Pulse Oximetry 96 12/01/23 21:33 Pain Scale Pain Intensity 0 - Paulo Coma Scale Best Eye Response (Paulo): (4) open spontaneously Best Verbal Response ([place]): (5) oriented Best Motor Response ([place]): (6) obeys commands [place] Total: 15 - Physical Exam General Appearance: no apparent distress, alert, anxiety, obese Eye Exam: bilateral eye: normal inspection, PERRL, EOMI Ears, Nose, Throat Exam: normal ENT inspection, moist mucous membranes Neck Exam: normal inspection, non-tender, supple, full range of motion Respiratory: normal breath sounds, lungs clear, airway intact, No chest tenderness, No respiratory distress Cardiovascular: regular rate/rhythm, normal heart sounds, normal peripheral pulses Gastrointestinal: soft, normal bowel sounds, No tenderness Pelvic Exam: not done Rectal Exam: not done Back Exam: normal inspection, normal range of motion, No CVA tenderness, No sha tebral tenderness Extremity Exam: normal inspection, normal range of motion, pelvis stable Mental Status: alert, oriented x 3, 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 Exam: normal hearing, normal speech, PERRL, tongue midline Coordination/Gait: normal finger to nose, normal gait, normal cerebellar function Motor/Sensory: no motor deficit, no sensory deficit, no pronator drift Skin Exam: normal color, warm, dry SpO2 Interpretation: normal O2 Delivery: Room Air - Course Nursing assessment & vital signs reviewed: Yes EKG Interpreted by Me: RATE (84), Sinus Rhythm, NORMAL AXIS, NORMAL INTERVALS, NORMAL QRS, NORMAL ST-T, Other (No acute ischemic changes on today's twelve-lead EKG.) Ordered Tests: Active Orders 24 hr Category Date Time Status Clean Catch Urine Specimen STAT Care 12/01/23 22:15 Active EKG-ER Only STAT Care 12/01/23 22:15 Active IV Insertion STAT Care 12/01/23 22:15 Active HEAD WITHOUT CONTRAST [CT] Stat Exams 12/01/23 22:16 Completed CBC W DIFF Stat Lab 12/01/23 22:47 Completed CMP Stat Lab 12/01/23 22:47 Completed CULTURE,URINE Stat Lab 12/01/23 22:18 Received ETHYL ALCOHOL Stat Lab 12/01/23 22:47 Completed MAGNESIUM Stat Lab 12/01/23 22:47 Completed TROPONIN Q4H Lab 12/01/23 22:48 Completed TROPONIN Q4H Lab 12/02/23 02:45 Ordered TROPONIN Q4H Lab 12/02/23 06:45 Ordered UA W/RFX UR CULTURE Stat Lab 12/01/23 22:18 Completed Urine Triage Profile Stat Lab 12/01/23 22:18 Completed Medication Summary Generic Name Dose Route Start Last Admin Trade Name Freq PRN Reason Stop Dose Admin Sodium Chloride 500 mls @ 500 mls/hr 12/01/23 23:25 12/01/23 23:31 Sodium Chloride 0.9% 500 Ml IV 12/02/23 00:24 500 mls/hr .Q1H ONE Administration Discontinued Medications Generic Name Dose Route Start Last Admin Trade Name Freq PRN Reason Stop Dose Admin Sodium Chloride 500 mls @ 500 mls/hr 12/01/23 22:16 12/01/23 22:44 Sodium Chloride 0.9% 500 Ml IV 12/01/23 23:15 500 mls/hr .Q1H ONE Administration Sodium Chloride Confirm 12/01/23 22:42 Sodium Chloride 0.9% 500 Ml Administered 12/01/23 22:43 Dose 500 mls @ ud IV .STK-MED ONE Ceftriaxone Sodium 1 gm in 100 mls @ 200 mls/hr 12/01/23 23:24 12/01/23 23:32 Rocephin 1 Gm / 100 Ml Nacl IV 12/01/23 23:53 200 ml/hr STAT ONE 200 mls/hr Administration Ceftriaxone Sodium Confirm 12/01/23 23:29 Rocephin 1 Gm / 100 Ml Nacl Administered 12/01/23 23:30 Dose 1 gm in 100 mls @ ud IV .STK-MED ONE Sodium Chloride Confirm 12/01/23 23:29 Sodium Chloride 0.9% 500 Ml Administered 12/01/23 23:30 Dose 500 mls @ ud IV .STK-MED ONE Potassium Chloride 20 meq 12/01/23 23:25 12/01/23 23:32 Potassium Chloride Tab 10 Meq Tab PO 12/01/23 23:26 20 meq STAT ONE Administration Potassium Chloride Confirm 12/01/23 23:29 Potassium Chloride Tab 10 Meq Tab Administered 12/01/23 23:30 Dose 20 meq .ROUTE .STK-MED ONE Lab/Rad Data: Laboratory Result Diagrams 12/01/23 22:47 12/01/23 22:47 Laboratory Results 12/01/23 12/01/23 12/01/23 Range/Units 22:48 22:47 22:47 WBC 11.7 H (4.0-10.5) x10^3/uL RBC 4.05 L (4.1-5.4) x10^6/uL Hgb 11.3 L (12.0-16.0) g/dL Hct 35.9 (35-47) % MCV 88.6 (78-100) fL MCH 27.9 (26-32) pg MCHC 31.5 L (32-36) g/dL RDW 13.2 (11.5-14.0) % Plt Count 274 (150-450) x10^3/uL MPV 9.3 (7.5-11.0) fL Gran % 52.8 (36.0-66.0) % Immature Gran % (Auto) 0.3 (0.00-0.4) % Nucleat RBC Rel Count 0.0 (0.00-0.1) % Eos # (Auto) 0.34 (0-0.5) x10^3/uL Immature Gran # (Auto) 0.04 H (0.00-0.03) x10^3u/L Absolute Lymphs (auto) 4.53 (1.0-4.6) x10^3/uL Absolute Monos (auto) 0.56 (0.0-1.3) x10^3/uL Absolute Nucleated RBC 0.00 (0.00-0.01) x10^3u/L Lymphocytes % 38.7 (24.0-44.0) % Monocytes % 4.8 (0.0-12.0) % Eosinophils % 2.9 (0.00-5.0) % Basophils % 0.5 (0.0-0.4) % Absolute Granulocytes 6.18 (1.4-6.9) x10^3/uL Basophils # 0.06 (0-0.4) x10^3/uL Sodium 142 (137-145) mmol/L Potassium 3.1 L (3.5-5.1) mmol/L Chloride 108 H (98-107) mmol/L Carbon Dioxide 21 L (22-30) mmol/L Anion Gap 16.9 H (5-15) MEQ/L BUN 15 (7-17) mg/dL Creatinine 0.97 (0.52-1.04) mg/dL Estimated GFR 71.6 ML/MIN Glucose 130 H (74-106) mg/dL Calcium 9.2 (8.4-10.2) mg/dL Magnesium 1.8 (1.6-2.3) mg/dL Total Bilirubin 0.40 (0.2-1.3) mg/dL AST 26 (14-36) U/L ALT 30 (0-35) U/L Alkaline Phosphatase 112 (38-126) U/L Troponin I < 0.012 (0.000-0.034) ng/mL Serum Total Protein 7.9 (6.3-8.2) g/dL Albumin 4.3 (3.5-5.0) g/dL Urine Color (Yellow) Urine Appearance (Clear) Urine pH (4.6-8.0) Ur Specific [place] (1.005-1.030) Urine Protein (Negative) Urine Glucose (UA) (Negative) mg/dL Urine Ketones (Negative) Urine Blood (Negative) Urine Nitrite (Negative) Urine Bilirubin (Negative) Urine Urobilinogen (0.2) mg/dL Ur Leukocyte Esterase (Negative) U Hyaline Cast (Auto) (0-2) /LPF Urine Microscopic RBC (0-5) /HPF Urine Microscopic WBC (0-5) /HPF Ur Epithelial Cells (None Seen) /HPF Urine Bacteria (None Seen) /HPF Urine Culture Reflexed (NO) Urine Opiates Level (NEGATIVE) Ur Methadone (NEGATIVE) Urine Barbiturates (NEGATIVE) Ur Phencyclidine (PCP) (NEGATIVE) Urine Amphetamine (NEGATIVE) U Benzodiazepine Level (NEGATIVE) Urine Cocaine (NEGATIVE) Urine Marijuana (THC) (NEGATIVE) Ethyl Alcohol < 10 (0-10) mg/dL 12/01/23 12/01/23 Range/Units 22:18 22:18 WBC (4.0-10.5) x10^3/uL RBC (4.1-5.4) x10^6/uL Hgb (12.0-16.0) g/dL Hct (35-47) % MCV (78-100) fL MCH (26-32) pg MCHC (32-36) g/dL RDW (11.5-14.0) % Plt Count (150-450) x10^3/uL MPV (7.5-11.0) fL Gran % (36.0-66.0) % Immature Gran % (Auto) (0.00-0.4) % Nucleat RBC Rel Count (0.00-0.1) % Eos # (Auto) (0-0.5) x10^3/uL Immature Gran # (Auto) (0.00-0.03) x10^3u/L Absolute Lymphs (auto) (1.0-4.6) x10^3/uL Absolute Monos (auto) (0.0-1.3) x10^3/uL Absolute Nucleated RBC (0.00-0.01) x10^3u/L Lymphocytes % (24.0-44.0) % Monocytes % (0.0-12.0) % Eosinophils % (0.00-5.0) % Basophils % (0.0-0.4) % Absolute Granulocytes (1.4-6.9) x10^3/uL Basophils # (0-0.4) x10^3/uL Sodium (137-145) mmol/L Potassium (3.5-5.1) mmol/L Chloride (98-107) mmol/L Carbon Dioxide (22-30) mmol/L Anion Gap (5-15) MEQ/L BUN (7-17) mg/dL Creatinine (0.52-1.04) mg/dL Estimated GFR ML/MIN Glucose (74-106) mg/dL Calcium (8.4-10.2) mg/dL Magnesium (1.6-2.3) mg/dL Total Bilirubin (0.2-1.3) mg/dL AST (14-36) U/L ALT (0-35) U/L Alkaline Phosphatase (38-126) U/L Troponin I (0.000-0.034) ng/mL Serum Total Protein (6.3-8.2) g/dL Albumin (3.5-5.0) g/dL Urine Color Yellow (Yellow) Urine Appearance Cloudy A (Clear) Urine pH 8.0 (4.6-8.0) Ur Specific [place] 1.020 (1.005-1.030) Urine Protein Negative (Negative) Urine Glucose (UA) Negative (Negative) mg/dL Urine Ketones Negative (Negative) Urine Blood Negative (Negative) Urine Nitrite Negative (Negative) Urine Bilirubin Negative (Negative) Urine Urobilinogen 1.0 A (0.2) mg/dL Ur Leukocyte Esterase Large A (Negative) U Hyaline Cast (Auto) NONE SEEN (0-2) /LPF Urine Microscopic RBC 0-2 (0-5) /HPF Urine Microscopic WBC 21-50 A (0-5) /HPF Ur Epithelial Cells Moderate A (None Seen) /HPF Urine Bacteria Moderate A (None Seen) /HPF Urine Culture Reflexed YES (NO) Urine Opiates Level NEGATIVE (NEGATIVE) Ur Methadone NEGATIVE (NEGATIVE) Urine Barbiturates NEGATIVE (NEGATIVE) Ur Phencyclidine (PCP) NEGATIVE (NEGATIVE) Urine Amphetamine NEGATIVE (NEGATIVE) U Benzodiazepine Level NEGATIVE (NEGATIVE) Urine Cocaine NEGATIVE (NEGATIVE) Urine Marijuana (THC) NEGATIVE (NEGATIVE) Ethyl Alcohol (0-10) mg/dL - Progress Progress: improved, re-examined Progress Note: 12/01/23 22:37 This patient's medical issue is 1 of moderate complexity. The level of complexity in the workup performed is based on review of the patient's past medical history, review of the patient's drug allergy list, review of the patient's medication list, history of present illness and physical findings on examination. The workup in this patient includes placement of intravenous line, infusion of normal saline solution, CBC, CMP, magnesium level, urinalysis, urine drug screen, troponin level, twelve-lead EKG and CT scan of the head without contrast. 12/01/23 23:54 I interpreted the patient's laboratory data results. Patient has a mildly low potassium at 3.1. We will supplement her with 20 mill equivalents of potassium orally. In addition, patient has urinary tract infection. CT scan of the head without contrast is unremarkable study. It was read by the radiologist and I reviewed the impression. Counseled pt/family regarding: lab results, diagnosis, need for follow-up, rad results Medical Desision Making - Diagnostic Testing Diagnostic test were ordered, analyzed, and reviewed by me: Yes Radiological Interpretation: Reviewed by me, Teleradiologist Report - Risk of complications The pt has a mod risk of morbidity or mortality based on: Need for prescription drug management - Departure Departure Disposition: Home Clinical Impression: Hypokalemia, UTI (urinary tract infection) Condition: Stable Critical Care Time: No Referrals: JACOBO HAYNES NP [Primary Care Provider] - Follow up/PCP as directed Additional Instructions: Drink plenty of clear liquids. Take your medication as prescribed. Follow-up with your primary care provider on 12/04/2023 to make arranges for follow- up appointment in the next 5 to 7 days Prescriptions: Ciprofloxacin [Cipro 500 MG] 500 mg PO BID #14 tablet
[2023-12-01 21:51] VITALS: TEMP 97.8
[2023-12-01] MEDS ORDERED: Sodium Chloride 0.9% 500 ML 500 ML IV ONE ×2 (22:42→23:29)
[2023-12-01] MEDS: Sodium Chloride 0.9% 500 ML 500 ML IV ONE ×2 (22:44→23:31)
[2023-12-01 22:46] LABS: Appearance Cloudy (Clear); Bacteria Moderate /HPF (None Seen); Bilirubin Negative (Negative); Blood Negative (Negative); Epithelial Cells Moderate /HPF (None Seen); Glucose, Urine Negative (Negative); Hyaline Casts NONE SEEN /LPF (0-2); Ketones Negative (Negative); Leukocyte Esterase Large (Negative); Nitrite Negative (Negative); Protein,Urine Dip Negative (Negative); RBC 0-2 /HPF (0-5); WBC 21-50 /HPF (0-5)
[2023-12-01 22:47] LABS: Absolute Neutrophil Ct (ANC) 6.18 x10^3/uL (1.4-6.9); BASOPHIL % 0.5 % (0.0-0.4); Basophil (Absolute #) 0.06 x10^3/uL (0-0.4); Eosinophil % 2.9 % (0.00-5.0); Eosinophil (Absolute #) 0.34 x10^3/uL (0-0.5); Hematocrit 35.9 % (35-47); Hemoglobin 11.3 g/dL (12.0-16.0); IMMATURE GRAN # 0.04 x10^3u/L (0.00-0.03); IMMATURE GRAN % 0.3 % (0.00-0.4); Lymphocyte (Absolute #) 4.53 x10^3/uL (1.0-4.6); Lymphocytes % 38.7 % (24.0-44.0); Mean Cell Volume 88.6 fL (78-100); Mean Corpuscular Hemoglobin 27.9 pg (26-32); Mean Corpuscular Hgb Concent. 31.5 g/dL (32-36); Mean Platelet Volume 9.3 fL (7.5-11.0); Monocyte (Absolute #) 0.56 x10^3/uL (0.0-1.3); Monocytes % 4.8 % (0.0-12.0); Neutrophil % 52.8 % (36.0-66.0); Platelet Count 274 x10^3/uL (150-450); Red Blood Count 4.05 x10^6/uL (4.1-5.4); Red Cell Distribution Width 13.2 % (11.5-14.0); White Blood Count 11.7 x10^3/uL (4.0-10.5)
[2023-12-01 22:52] LABS: ADD URINE CULTURE? YES (NO)
[2023-12-01 22:55] LABS: Amphetamine,Urine NEGATIVE (NEGATIVE); Barbiturate,Urine NEGATIVE (NEGATIVE); Benzodiazepine,Urine NEGATIVE (NEGATIVE); Cocaine,Urine NEGATIVE (NEGATIVE); Methadone,Urine NEGATIVE (NEGATIVE); Opiate,Urine NEGATIVE (NEGATIVE); PCP,Urine NEGATIVE (NEGATIVE); THC,Urine NEGATIVE (NEGATIVE)
[2023-12-01 23:01] LABS: ALBUMIN 4.3 g/dL (3.5-5.0); ALKALINE PHOSPHATASE 112 U/L (38-126); ANION GAP 16.9 MEQ/L (5-15); BLOOD UREA NITROGEN 15 mg/dL (7-17); CHLORIDE 108 mmol/L (98-107); Calcium 9.2 mg/dL (8.4-10.2); Carbon Dioxide 21 mmol/L (22-30); Creatinine 1 0.97 mg/dL (0.52-1.04); EST GLOMERULAR FILTRATION RATE 71.6 ML/MIN; ETHYL ALCOHOL < 10 mg/dL (0-10); Glucose 130 mg/dL (74-106); MAGNESIUM 1.8 mg/dL (1.6-2.3); Potassium 3.1 mmol/L (3.5-5.1); SGOT/AST 26 U/L (14-36); SGPT/ALT 30 U/L (0-35); SODIUM 142 mmol/L (137-145); Total Protein 7.9 g/dL (6.3-8.2)
[2023-12-01] MEDS ORDERED: Klor Con ONE (23:29)
[2023-12-01] MEDS ORDERED: ROCEPHIN 1 GM / 100 ML NaCl 1 GM/100 ML IVPB IV ONE (23:29)
[2023-12-01] MEDS: ROCEPHIN 1 GM / 100 ML NaCl 1 GM/100 ML IVPB IV ONE (23:32)
[2023-12-01] MEDS: Klor Con PO ONE (23:32)
--- NOTE | 2023-12-01 23:47 | XRAY ---
CLINICAL HISTORY: Facial numbness, dizziness TECHNIQUE: Axial noncontrast CT scan of the brain was performed from the skull base to the high parietal region COMPARISON: None. FINDINGS: The cerebral parenchyma exhibits normal attenuation. Poole-white differentiation is well preserved. The ventricular system and subarachnoid CSF spaces are unremarkable. No midline shift was seen. The brainstem and cerebellum are normal in morphology and attenuation. No fracture was seen. Pneumatization of bilateral temporal bone petrous apexes is noted. Bilateral mucosal thickening of the maxillary and ethmoid sinuses are noted, along with left sphenoid sinus effusion. A defined hyperdensity is noted in the right maxillary sinus, possibly inspissated secretions. IMPRESSION: 1. Unremarkable non-enhanced CT study of the brain. 2. Early infarct changes do not appear on CT. If there is strong clinical suspicion, an MRI brain with DWI/ADC maps is suggested. 3. Bilateral maxillary, ethmoid, and left sphenoid sinusitis Electronically Signed by: Cristian Pantoja MD. (12/01/2023 23:43:04 EST)
[2023-12-02 00:46] VITALS: BP 116/71; PULSE 89; RESP 18; O2SAT 97
== END 2023-12-02 00:47 | disposition home or self-care (01) ==
LOC: ED 21:21
DX: E87.6 Hypokalemia (principal); N39.0 Urinary tract infection, site not specified; R20.2 Paresthesia of skin; M79.89 Other specified soft tissue disorders; R63.4 Abnormal weight loss; E11.9 Type 2 diabetes mellitus without complications; E78.5 Hyperlipidemia, unspecified; I10 Essential (primary) hypertension; Z79.84 Long term (current) use of oral hypoglycemic drugs; Z79.85 Long-term (current) use of injectable non-insulin antidiabetic drugs; Z79.899 Other long term (current) drug therapy
CPT/HCPCS: 36000; 36415; 70450; 80053; 80307; 81001; 82077; 83735; 84484; 85025; 87086; 93005; 96374; 99284; J0696; A9270-GY

== ENCOUNTER 2024-07-05 20:21 | Emergency (ER) | payer OTHER ==
[2024-07-05 20:39] VITALS: TEMP 97.2
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
[2024-07-05 21:04] LABS: Absolute Neutrophil Ct (ANC) 6.52 x10^3/uL (1.56-6.13); BASOPHIL % 0.7 % (0.1-1.2); Basophil (Absolute #) 0.08 x10^3/uL (0.01-0.08); Eosinophil % 2.5 % (0.7-5.8); Hematocrit 38.2 % (34.1-44.9); Hemoglobin 12.5 g/dL (11.2-15.7); IMMATURE GRAN # 0.04 x10^3u/L (0.001-0.031); IMMATURE GRAN % 0.3 % (0.001-0.429); Lymphocyte (Absolute #) 4.33 x10^3/uL (1.18-3.74); Lymphocytes % 36.5 % (19.3-51.7); Mean Corpuscular Hemoglobin 28.2 pg (25.6-32.2); Mean Corpuscular Hgb Concent. 32.7 g/dL (32.2-35.5); Monocyte (Absolute #) 0.59 x10^3/uL (0.24-0.86); Platelet Count 318 x10^3/uL (182-369); Red Blood Count 4.44 x10^6/uL (3.93-5.22); Red Cell Distribution Width 12.8 % (11.7-14.4); White Blood Count 11.9 x10^3/uL (3.98-10.04)
[2024-07-05 21:27] LABS: ALBUMIN 4.4 g/dL (3.5-5.0); ANION GAP 21.3 MEQ/L (5-15); BILIRUBIN,TOTAL 0.6 mg/dL (0.2-1.3); Calcium 10.1 mg/dL (8.4-10.2); Creatinine 1 1.02 mg/dL (0.52-1.04); MAGNESIUM 1.7 mg/dL (1.6-2.3); Potassium 3.8 mmol/L (3.5-5.1); Total Protein 7.9 g/dL (6.3-8.2)
[2024-07-05] MEDS ORDERED: Lactated Ringers 1,000 ML IV ONE (21:45)
[2024-07-05] MEDS: Lactated Ringers 1,000 ML IV ONE (21:46)
[2024-07-05 22:48] LABS: Appearance Clear (Clear); Bacteria Few /HPF (None Seen); Bilirubin Negative (Negative); Blood Negative (Negative); Epithelial Cells Few /HPF (None Seen); Glucose, Urine Negative (Negative); Ketones Negative (Negative); Leukocyte Esterase Small (Negative); Nitrite Negative (Negative); Protein,Urine Dip Negative (Negative); RBC 0-2 /HPF (0-5); Urobilinogen 0.2 mg/dL (0.2)
[2024-07-05] MEDS ORDERED: ROCEPHIN 1 GM / 100 ML NaCl 1 GM/100 ML IVPB IV ONE (23:23)
[2024-07-05] MEDS: ROCEPHIN 1 GM / 100 ML NaCl 1 GM/100 ML IVPB IV ONE (23:31)
--- NOTE | 2024-07-05 23:39 | XRAY ---
Indication: Chest pain. Comparison: June 09, 2021 Portable chest remains inflated and clear. Heart and mediastinal structures within normal limits for AP portable technique. Bony thorax intact again with mild degenerative changes. Impression: Continued nonacute chest.
[2024-07-06 00:03] LABS: ANION GAP 16.6 MEQ/L (5-15); Calcium 9.8 mg/dL (8.4-10.2); Creatinine 1 0.98 mg/dL (0.52-1.04); EST GLOMERULAR FILTRATION RATE 70.3 ML/MIN; Potassium 3.2 mmol/L (3.5-5.1)
[2024-07-06] MEDS ORDERED: Klor Con ONE (00:19)
[2024-07-06] MEDS ORDERED: Lactated Ringers 1,000 ML IV ONE (00:31)
[2024-07-06] MEDS: Lactated Ringers 500 ML IV ONE (00:32)
[2024-07-06] MEDS: Klor Con PO ONE (00:38)
[2024-07-06] MEDS: Lactated Ringers 1,000 ML IV SCH (00:38)
[2024-07-06 00:49] VITALS: O2SAT 96
[2024-07-06 00:57] VITALS: BP 133/81; PULSE 76; RESP 18
== END 2024-07-06 00:58 | disposition home or self-care (01) ==
LOC: ED 20:21
DX: F45.9 Somatoform disorder, unspecified (principal); R07.9 Chest pain, unspecified; N39.0 Urinary tract infection, site not specified; E11.9 Type 2 diabetes mellitus without complications; E78.5 Hyperlipidemia, unspecified; I10 Essential (primary) hypertension; Z79.84 Long term (current) use of oral hypoglycemic drugs; Z79.85 Long-term (current) use of injectable non-insulin antidiabetic drugs; Z79.4 Long term (current) use of insulin; Z79.899 Other long term (current) drug therapy
CPT/HCPCS: 36000; 36415; 71045; 80048; 80053; 81001; 83605; 83735; 83880; 84484; 85025; 85379; 93005; 93041; 94760; 96360; 96365; 99284; J0696; A9270-GY

== ENCOUNTER 2024-08-25 18:14 | Emergency (ER) | payer OTHER ==
[2024-08-25 18:31] VITALS: TEMP 97.6
--- NOTE | 2024-08-25 19:09 | ERPHSYRPT ---
- History of Present Illness Time Seen by Provider: 08/25/24 18:20 Source: patient Exam Limitations: no limitations Patient Subjective Stated Complaint: pt here for facial swelling that started about 0900 this am , she took 2 benadryl at home Triage Nursing Assessment: pt alert, walked in, resp easy, skin w/d/p, has swelling to eye,upper lip. has hives to back, she denies any new meds Physician History: 49 years old female presented in the ER with complaints of facial swelling and redness which started this morning when she woke up. Patient reports watering of the eyes and some redness of conjunctiva. Increased light sensitivity. No difficulty movements of eyeball. Also noticed some urticaria/webs on the upper back. Denies any known allergen. Does report having history of recent URI symptoms/sinus congestion. No fever or chills reported. No swelling of the tongue or floor of mouth. No difficulty speech swallowing or breathing. Patient has taken 50 mg Benadryl earlier at home with no significant relief. Allergies/Adverse Reactions: ibuprofen Allergy (Severe, Verified 08/25/24 18:20) Difficulty Breathing ketorolac tromethamine [From Toradol] Allergy (Severe, Verified 08/25/24 18:20) Difficulty Breathing naproxen Allergy (Severe, Verified 08/25/24 18:20) Difficulty Breathing NSAIDS (Non-Steroidal Anti-Inflamma Allergy (Severe, Verified 08/25/24 18:20) Difficulty Breathing aspirin Allergy (Mild, Verified 08/25/24 18:20) Home Medications: allopurinoL [Allopurinol] 300 mg PO DAILY 12/01/15 [History] Colchicine 0.6 mg PO HS 01/24/19 [History] Glipizide 5 mg [Glucotrol 5 MG] 10 mg PO BIDAC 05/09/21 [History] Loratadine 10 mg [Claritin 10 mg] 10 mg PO DAILY 05/09/21 [History] Meclizine HCl 25 mg [Antivert 25 mg] 25 mg PO TID 05/09/21 [History] Trazodone HCl 50 mg [Desyrel 50 mg] 200 mg PO HS 05/09/21 [History] Ezetimibe 10 mg [Zetia 10 MG] 10 mg PO DAILY 09/14/22 [History] Semaglutide [Ozempic] 2 mg SQ WEEKLY 09/14/22 [History] Venlafaxine HCl [Venlafaxine HCl ER] 150 mg PO DAILY 09/14/22 [History] Fenofibrate,Micronized 145 mg* [Tricor 145 MG] 145 mg PO DAILY 09/19/23 [History] Atorvastatin Calcium 10 mg PO DAILY 12/01/23 [History] Dicyclomine HCl 20 mg [Bentyl 20 mg] 20 mg PO QID 12/01/23 [History] Hydroxyzine HCl 25 mg [Atarax 25 mg] 25 mg PO TID 12/01/23 [History] Lamotrigine 100 mg [lamICTAL 100MG TABLET] 100 mg PO DAILY 12/01/23 [History] Omeprazole 20 mg PO DAILY 12/01/23 [History] Topiramate 100 mg [Topamax 100 MG] 100 mg PO DAILY 12/01/23 [History] methocarbamoL [Methocarbamol] 750 mg PO BID 12/01/23 [History] Insulin Glargine [Lantus Insulin] 65 unit SQ DAILY 08/25/24 [History] Hx Tetanus, Diphtheria Vaccination/Date Given: Yes Hx Influenza Vaccination/Date Given: Yes Hx Pneumococcal Vaccination/Date Given: Yes (3 years ago) Immunizations Up to Date: Yes Travel Risk - International Travel Have you traveled outside of the country in past 3 weeks: No - Emerging Infectious Disease Are you exhibiting symptoms associated with any current EIDs: No - Review of Systems Constitutional: No Symptoms Eyes: Discharge, Eye Redness, Itchy, Photophobia, Tearing Ears, Nose, & Throat: Nose Congestion, Sinus Drainage Respiratory: No Symptoms Cardiac: No Symptoms Abdominal/Gastrointestinal: No Symptoms Genitourinary Symptoms: No Symptoms Musculoskeletal: No Symptoms Skin: No Symptoms Neurological: No Symptoms Psychological: No Symptoms - Past Medical History Pertinent Past Medical History: Yes Neurological History: Migraines ENT History: Macular Degeneration Cardiac History: High Cholesterol, Hypertension Respiratory History: No Pertinent History Endocrine Medical History: Diabetes Type II Musculoskeletal History: Degenerative Disk Disease GI Medical History: Diverticulitis, Diverticulosis, GERD, Gallbladder Disease History: No Pertinent History Psycho-Social History: Anxiety, Bipolar, Depression Female Reproductive Disorders: Uterine Cancer Other Medical History: gout, anemia - Past Surgical History Past Surgical History: Yes Neuro Surgical History: No Pertinent History Cardiac: No Pertinent History Respiratory: Other Gastrointestinal: Cholecystectomy Genitourinary: No Pertinent History Musculoskeletal: No Pertinent History Female Surgical History: Hysterectomy Other Surgical History: Gall baldder 1998, nodule removed from lung - Female History Hx Last Menstrual Period: hyster Hx Now: No - Social History Smoking Status: Never smoker Exposure to second hand smoke: Yes Drug Use: none Patient Lives Alone: Yes - Social Determinants of Health Will the patient participate in the screening: Yes Do you worry about a steady place to live?: No Do you have any problems with any of the following?: No known problems In the past 12 months,have you had to go without utilities?: No Transportation Issues: No Has anyone in your support network made you feel unsafe?: No Have you or anyone in your house had to go without enough: No - Nursing Vital Signs Nursing Vital Signs: Initial Vital Signs Temperature 97.6 F 08/25/24 18:30 Pulse Rate 86 08/25/24 18:30 Respiratory Rate 18 08/25/24 18:30 Blood Pressure 136/91 08/25/24 18:30 O2 Sat by Pulse Oximetry 98 08/25/24 18:30 Pain Scale Pain Intensity 4 - Physical Exam General Appearance: no apparent distress, alert Eye Exam: bilateral eye: PERRL, EOMI, conjunctival hemorrhage, photophobia, other (Erythematous both cheeks/maxilla) Ear Exam: bilateral ear: auricle normal, canal normal, TM normal Nasal Exam: normal inspection, sinus tenderness (Frontal sinus tenderness) Throat Exam: normal, pharynx normal, No dental tenderness Neck Exam: normal inspection, non-tender, supple, full range of motion Cardiovascular/Respiratory Exam: normal breath sounds, regular rate/rhythm Neurologic Exam: alert, oriented x 3, 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, 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, sensation nml, No motor deficits Skin Exam: normal color SpO2 Interpretation: normal SpO2: 98 O2 Delivery: Room Air Ordered Tests: Medication Summary Discontinued Medications Generic Name Dose Route Start Last Admin Trade Name Freq PRN Reason Stop Dose Admin Amoxicillin/Clavulanate Potassium 875 mg 08/25/24 20:24 08/25/24 20:30 Amox Tr/Potassium Clavulanate 875 Mg Tablet PO 08/25/24 20:25 875 mg STAT ONE Administration Amoxicillin/Clavulanate Potassium Confirm 08/25/24 20:29 Amox Tr/Potassium Clavulanate 875 Mg Tablet Administered 08/25/24 20:30 Dose 875 mg .ROUTE .STK-MED ONE Methylprednisolone Sodium 0 mg 08/25/24 18:58 08/25/24 19:26 Succinate 125 mg/ Sterile IV 08/25/24 18:59 125 mg Water 2 ml STAT ONE Administration Diphenhydramine HCl 50 mg 08/25/24 18:58 08/25/24 19:26 Diphenhydramine Hcl 50 Mg/Ml Vial IV 08/25/24 18:59 50 mg STAT ONE Administration Diphenhydramine HCl Confirm 08/25/24 19:23 Diphenhydramine Hcl 50 Mg/Ml Vial Administered 08/25/24 19:24 Dose 50 mg .ROUTE .STK-MED ONE Famotidine 20 mg 08/25/24 18:58 08/25/24 19:26 Famotidine 20 Mg/1 Vial IV 08/25/24 18:59 20 mg STAT ONE Administration Famotidine Confirm 08/25/24 19:23 Famotidine 20 Mg/1 Vial Administered 08/25/24 19:24 Dose 20 mg IV .STK-MED ONE Methylprednisolone Sodium Succinate Confirm 08/25/24 19:23 Methylprednis Sod Succ 125 Mg/2 Ml Vial Administered 08/25/24 19:24 Dose 125 mg .ROUTE .STK-MED ONE Ofloxacin 5 ml 08/25/24 20:30 08/25/24 20:30 Ofloxacin 0.3% Opth 5 Ml Eye Drops OP 09/24/24 20:29 5 ml [id number] GODWIN Administration Ofloxacin Confirm 08/25/24 20:29 Ofloxacin 0.3% Opth 5 Ml Eye Drops Administered 08/25/24 20:30 Dose 5 ml OP .STK-MED ONE Sterile Water Confirm 08/25/24 19:23 Water For Injection,Sterile 10 Ml Vial Administered 08/25/24 19:24 Dose 10 ml IJ .STK-MED ONE - Progress Progress: improved Progress Note: 08/25/24 20:25 49 years old is evaluated in the ER for bilateral cheek swelling and redness of eyes and some hives to the back. She is given Solu-Medrol, Benadryl and Pepcid, on reevaluation her swelling is improved. Less itching of the eyes. She has photophobia but no other visual disturbances. I believe patient has some element of sinusitis as well and I have given a dose of Augmentin and will continue to go home. Also ofloxacin for conjunctivitis. Augmentin will also cover for preseptal cellulitis if there is any although I do not convinced that this seems to be preseptal. Will give a short course of steroid. Outpatient follow-up recommended. Discussed signs symptoms of worsening needing return to ER which she seems understanding. Stable for discharge. Counseled pt/family regarding: diagnosis, need for follow-up Medical Desision Making - Diagnostic Testing Diagnostic test were ordered, analyzed, and reviewed by me: No - Risk of complications The pt has a mod risk of morbidity or mortality based on: Need for prescription drug management - Departure Departure Disposition: Home Clinical Impression: Conjunctivitis, Sinusitis Condition: Stable Critical Care Time: No Referrals: JACOBO HAYNES NP [Primary Care Provider] - Follow up with PCP 1 day Instructions: Sinusitis, Adult ED, Conjunctivitis ([facility]) ED Additional Instructions: Take Benadryl as needed. Follow-up with primary care and ophthalmology/optometry for reevaluation. Return to ER for any worsening. Monitor your glucose regularly while being on steroid and return to ER for persistent high glucose. Use 1 to 2 eyedrops given to you in the ER every 6 hour for 5 days. Prescriptions: Amox Tr/Potass Clav. 875 mg [Augmentin 875-125 Tablet] 875 mg PO BID #14 tablet Prednisone 20 mg [Deltasone 20 mg] 40 mg PO DAILY 3 Days #6 tablet
[2024-08-25] MEDS ORDERED: Sterile H2O 10 ml IJ ONE (19:23)
[2024-08-25] MEDS ORDERED: solu-MEDROL ONE (19:23)
[2024-08-25] MEDS ORDERED: BENADRYL 50 MG/ML ONE (19:23)
[2024-08-25] MEDS ORDERED: Pepcid 20 MG VIAL IV ONE (19:23)
[2024-08-25] MEDS: Pepcid 20 MG VIAL IV ONE (19:26)
[2024-08-25] MEDS: BENADRYL 50 MG/ML IV ONE (19:26)
[2024-08-25] MEDS: solu-MEDROL 125 MG, Sterile H2O 10 ml 2 ML IV ONE (19:26)
[2024-08-25 20:10] VITALS: BP 134/87; PULSE 87; RESP 16
[2024-08-25] MEDS ORDERED: Augmentin 875-125 Tablet ONE (20:29)
[2024-08-25] MEDS ORDERED: Ocuflox OPHTHALMIC 5 ML OP ONE (20:29)
[2024-08-25 20:30] VITALS: O2SAT 98
[2024-08-25] MEDS: Ocuflox OPHTHALMIC 5 ML OP SCH (20:30)
[2024-08-25] MEDS: Augmentin 875-125 Tablet PO ONE (20:30)
== END 2024-08-25 20:49 | disposition home or self-care (01) ==
LOC: ED 18:14
DX: H10.9 Unspecified conjunctivitis (principal); J32.9 Chronic sinusitis, unspecified; R22.0 Localized swelling, mass and lump, head; E78.5 Hyperlipidemia, unspecified; I10 Essential (primary) hypertension; E11.9 Type 2 diabetes mellitus without complications; Z79.52 Long term (current) use of systemic steroids; Z79.84 Long term (current) use of oral hypoglycemic drugs; Z79.85 Long-term (current) use of injectable non-insulin antidiabetic drugs; Z79.4 Long term (current) use of insulin; Z79.899 Other long term (current) drug therapy
CPT/HCPCS: 96374; 96375; 99283; 99284; J1200; J2919; A9270-GY